=== PATIENT | female | born 1970 | race Caucasian/White ===

== ENCOUNTER 2020-08-13 21:16 | Emergency (ER) | payer BC, SELFPAY ==
--- NOTE | 2020-08-13 | XR_ITS ---
EXAMINATION: CHEST 1 VIEW CLINICAL INFORMATION: Shortness of breath. COMPARISON: None. TECHNIQUE: An AP view of the chest is provided. FINDINGS: The cardiac silhouette is not enlarged. The mediastinal and hilar contours are unremarkable. There are neither pleural effusions nor pneumothoraces. There are no consolidations. The osseous structures are unremarkable. XR/XR chest 1V IMPRESSION: No evidence for acute disease.
[2020-08-13 21:20] VITALS: BP 138/86; PULSE 110; RESP 18; TEMP 37.2; O2SAT 97
--- NOTE | 2020-08-13 22:04 | ED_ITS ---
HPI - General Adult General Chief complaint: General Medical Stated complaint: covid symptoms Time Seen by Provider: 08/13/20 22:04 Source: patient Mode of arrival: ambulatory Limitations: no limitations History of Present Illness HPI narrative: Just back from [place] now with aches and pains, coughing Onset (ago): day(s) Severity: mild Related Data Allergies Allergy/AdvReac Type Severity Reaction Status Date / Time No Known Allergies Allergy Mild N/A Unverified 06/22/20 17:00 Review of Systems Constitutional: Constitutional: Reports no additional constitutional complaints Eyes: Eyes: Reports no additional eye complaints ENT: Denies dizziness Cardiovascular: Cardiovascular: Reports no additional cardiovascular complaints Respiratory: Respiratory: Reports as per HPI Gastrointestinal: Gastrointestinal: Reports no additional gastrointestinal complaints Genitourinary: Genitourinary: Reports no additional female genitourinary com plaints Musculoskeletal: Musculoskeletal: Reports no additional musculoskeletal complaints Integumentary/Breasts: Skin/Breast: Denies rash Neurologic: Reports system reviewed and no additional complaints, except as documented, Denies dizziness and Denies Sensory deficit (Neuro) Psychiatric: Psychiatric: Denies anxiety [facility] Social History Social History Alcohol intake: never Smoked in Last 30 Days: No Use of substances other than those prescribed or required for medical reasons: No Advance Directives: No Advance Directives Information Provided: No Physical Exam Vital Signs: Vital Signs: Last Vital Signs Temp 98.9 F 08/13/20 21:20 Pulse 110 H 08/13/20 21:20 Resp 18 08/13/20 21:20 BP 138/86 08/13/20 21:20 Pulse Ox 97 08/13/20 21:20 Body Mass Index 30.0 Const: General: healthy appearing Nutritional Appearance: average body habitus Orientation/consciousness: oriented to person and patient oriented x3 Limitations: no limitations HENMT: Head: Yes normal to inspection Ears: external ears normal General nose exam: Normal external nose present Mouth: Normal oral and palatal mucosa present and oropharynx normal Throat: Yes posterior oropharynx normal Eyes: General: appearance normal, both eyes and all related structures Neck: Other: supple Neck: Yes normal visual inspection Chest: Chest palpation & inspection: normal inspection of the chest Resp: Auscultation: clear to auscultation bilaterally Cardio: Jugular venous distension: no JVD Rate: regular rate Rhythm: regular rhythm Heart sounds: S1 normal heart sound present and S2 normal heart sound present GI: Inspection: Yes normal to inspection Palpation (GI): Soft to palpation, nontender and No hepatosplenomegaly present Auscultation: normal bowel sounds : General: Yes no CVA tenderness Back/Spine/Pelvis: Back: no CVA tenderness Skin: General skin exam: no rashes or lesions noted Neuro: General: oriented to person and patient oriented x3 Cranial nerves: Yes CN's II-XII intact bilaterally Motor exam (neuro): 5/5 motor strength present throughout Sensory Exam: No Sensory deficit (Neuro) Extrem: General: Yes normal to inspection Psych: Appearance: grossly normal Course Course Course Narrative: looking well will dc home Medical Decision Making Imaging Data Chest x-ray: Radiologist's impression: no infiltrate Discharge Plan Discharge Clinical Impression: COVID-19 Patient Disposition: Home, Self-Care Instructions: COVID-19 (Coronavirus Disease 2019) (ED) Referrals: Stef Schroeder MD [Primary Care Provider] - 2 days
== END 2020-08-13 23:38 | disposition home or self-care (01) ==
PROVIDERS: Emergency Provider Emergency Medicine; PCP Internal Medicine
DX: U07.1 COVID-19 (principal); R05 Cough
CPT/HCPCS: 71045; 99283; 99284; U0003

== ENCOUNTER 2020-09-27 09:34 | Outpatient (REF) | payer BC, SELFPAY ==
--- NOTE | 2020-09-27 09:39 | XR_ITS ---
EXAMINATION: XR CHEST CLINICAL INFORMATION: Cough COMPARISON: Chest radiograph 08/13/2020 TECHNIQUE: 2 views of the chest were obtained. FINDINGS: The lungs are clear. There is no airspace consolidation or groundglass opacity. The costophrenic sulci are well-defined. The heart is normal in size. The hilar and mediastinal contours are normal. No visible acute bony abnormality. XR/XR chest 2V IMPRESSION: Unremarkable examination.
== END 2020-09-27 09:35 | disposition home or self-care (01) ==
LOC: HO.HMGCX 09:34
PROVIDERS: PCP Internal Medicine; Visit Provider Internal Medicine
DX: R05 Cough (principal); R94.5 Abnormal results of liver function studies
CPT/HCPCS: 71046

== ENCOUNTER 2021-07-05 17:46 | Emergency (ER) | payer BC, SELFPAY ==
--- NOTE | ~2021-07-05 | XR_ITS ---
Indication: Fall, injury EXAMINATION: Left shoulder, left elbow. 4 views of the left shoulder do not demonstrate fracture or dislocation. 3 views of left elbow do not demonstrate fracture or dislocation. XR/XR shoulder LT min 2V IMPRESSION: No fracture or dislocation left elbow, left shoulder.
--- NOTE | ~2021-07-05 | XR_ITS ---
Indication: Fall, injury EXAMINATION: Left shoulder, left elbow. 4 views of the left shoulder do not demonstrate fracture or dislocation. 3 views of left elbow do not demonstrate fracture or dislocation. XR/XR elbow LT 2V IMPRESSION: No fracture or dislocation left elbow, left shoulder.
[2021-07-05 18:29] VITALS: BP 152/91; PULSE 73; RESP 18; TEMP 36.8; O2SAT 100
[2021-07-05] MEDS: Acetaminophen 325 MG TABLET 650 MG PO (18:35)
--- NOTE | 2021-07-05 19:21 | ED.FALL ---
HPI - Fall General Chief Complaint: Fall Stated Complaint: fall l arm head inj Time Seen by Provider: 07/05/21 19:21 Source: patient Mode of arrival: ambulatory Limitations: no limitations History of Present Illness HPI Narrative: 50-year-old female is here today for complaints of left head, shoulder, elbow pain. Patient reports that she was walking into the house and had bags in her hands and tripped and fell onto the left side. Patient reports hitting left side of her forehead, her left shoulder and her left elbow. Patient denies LOC. Denies any lacerations. Patient denies any other symptoms. Patient denies any other concerning symptoms. MD complaint: fall Onset (ago): hour(s) Fall from: standing Place fall occurred: home Loss of consciousness: none Context: tripped/slipped Location of injury: head and other (Left shoulder and left elbow) Related Data Previous Rx's Medication Instructions Recorded albuterol sulfate 90 mcg/actuation 2 puff INHALATION Q6H PRN #8.5 g 09/27/20 aerosol inhaler (ProAir HFA) cyclobenzaprine 10 mg tablet 10 mg PO BEDTIME PRN #10 tab 07/05/21 oxycodone 5 mg tablet 5 mg PO Q4-6H PRN #5 tab 07/05/21 Allergies Allergy/AdvReac Type Severity Reaction Status Date / Time No Known Allergies Allergy Mild N/A Verified 07/05/21 18:29 Review of Systems Review of Systems: Constitutional : No Weight loss, No Fever, No Chills, No Night Sweats, No Fatigue, No Malaise ENT/Mouth : No Hearing loss, No Ear Pain, No Nasal Congestion, No Sinus Pain, No Hoarseness, No sore throat, No Rhinorrhea, No Swallowing Difficulty Eyes: No Eye Pain, No Swelling, No Redness, No Foreign Body, No Discharge, No Vision Changes Cardiovascular : No Chest Pain, No SOB, No Dyspnea on Exertion, No Orthopnea, No Edema, No Palpitations Respiratory : No Cough, No Sputum, No Wheezing, No Smoke Exposure, No Dyspnea Gastrointestinal : No Nausea, No Vomiting, No Diarrhea, No Constipation, No abdominal Pain, No Hematochezia, No Melena Genitourinary : no irregular bleeding, No Dysuria, No Urinary Frequency, No Hematuria, No Urinary Incontinence, No Urgency, No Flank Pain, No Urinary Flow Changes, No Hesitancy Musculoskeletal : No joint pain, No Myalgias, No Joint Swelling Skin : No Skin Lesions, No rash Neuro : No Weakness, No Numbness, No Paresthesias, No Loss of Consciousness, No Dizziness, No Headache Yes all other systems are reviewed and are negative Constitutional: Constitutional: Denies weight gain and Denies weight loss Cardiovascular: Cardiovascular: Reports no additional cardiovascular complaints Respiratory: Respiratory: Reports no additional respiratory complaints Gastrointestinal: Gastrointestinal: Denies abdominal pain, Denies belching, Denies melena, Denies bloating, Denies change in bowel habits, Denies dyspepsia, Denies heartburn, Denies nausea and Denies vomiting Neurologic: Reports system reviewed and no additional complaints, except as documented Psychiatric: Psychiatric: Reports no additional psychiatric complaints PMFSH Past Medical History Medical History (Updated 07/05/21 @ 20:42 by Janeen Smith DRAWING MACHINE OPERATOR-) Cough COVID-19 Surgical History History of section Hx of cholecystectomy Social History Social History (Updated 09/27/20 @ 09:01 by BETH Clinton) Alcohol intake: never Advance Directives: No Advance Directives Information Provided: No Patient : No Physical Exam Vital Signs: Vital Signs: Last Vital Signs Temp 98.2 F 07/05/21 18:29 Pulse 78 07/05/21 20:31 Resp 16 07/05/21 20:31 BP 115/76 07/05/21 20:31 Pulse Ox 99 07/05/21 20:31 Body Mass Index 30.0 Const: General: healthy appearing, no acute distress and well developed Nutritional Appearance: well nourished Orientation/consciousness: patient oriented x3 HENMT: Head: Yes No palpable skull fracture present, Yes contusion (Left periorbital frontal area) and Yes hematoma Ears: hearing grossly normal bilaterally, external ears normal and TM's normal bilaterally Eyes: General: appearance normal, both eyes and all related structures Neck: Neck: Yes normal visual inspection, Yes full ROM and Yes trachea midline Thyroid: Thyroid normal Resp: Effort & Inspection: normal respiratory effort and able to speak in complete sentences Auscultation: clear to auscultation bilaterally Cardio: Rate: regular rate Rhythm: regular rhythm GI: Inspection: Yes normal to inspection and No distended Palpation (GI): No hepatosplenomegaly present Auscultation: normal bowel sounds Skin: General skin exam: elasticity normal, turgor normal and dry skin Neuro: General: patient oriented x3, gait normal and moves all extremities Extrem: Right upper extremity: normal to inspection, full ROM and normal capillary refill Left upper extremity: normal to inspection and full ROM (Limited ROM, pain left shoulder, elbow) Course Course Course Narrative: Patient tripped and fell into the staircase concrete, patient was caring bags in her hands and was unable to stop the fall. Denies LOC, mild hematoma to left forehead. Pain to her left shoulder and left elbow. Decreased ROM a to elbow and shoulder will do x-ray. Patient will be medicated with oxycodone. Reevaluation(s) Reevaluation #1: X-ray negative for any acute findings. We will send patient home on cyclobenzaprine and oxycodone. Patient was instructed to apply ice for the 1st 3 days. She may return to emergency department if her symptoms will get worse. She is agreeable to this plan. MDM - Fall Imaging Data Left shoulder, left elbow x-ray: Attestation: I personally reviewed and interpreted this imaging study as follows: Radiologist's impression: EXAMINATION: Left shoulder, left elbow. 4 views of the left shoulder do not demonstrate fracture or dislocation. 3 views of left elbow do not demonstrate fracture or dislocation. Discharge Plan Discharge Clinical Impression: Contusion Qualifiers: Encounter type: initial encounter Contusion area: shoulder Laterality: left Qualified Code(s): S40.012A - Contusion of left shoulder, initial encounter Patient Disposition: Home, Self-Care Instructions: Contusion in Adults (ED) Additional Instructions: You were seen here today after fall. Your x-rays negative for any acute findings. You sustained some bruising to your shoulder and your elbow as well as your forehead. Please make sure apply ice for the next 3 days. You can take ibuprofen to decrease the swelling 3 diet is after the fall. You are being sent home with muscle relaxer and oxycodone to help you with the pain. Prescriptions: New cyclobenzaprine 10 mg tablet 10 mg PO BEDTIME PRN (Reason: muscle spasm) Qty: 10 RF: 0 oxycodone 5 mg tablet 5 mg PO Q4-6H PRN (Reason: pain) Qty: 5 RF: 0 No Action albuterol sulfate [ProAir HFA] 90 mcg/actuation HFA aerosol inhaler 2 puff inhalation Q6H PRN (Reason: shortness of breath or wheezing) Qty: 8.5 RF: 1 Referrals: Stef Schroeder MD [Primary Care Provider] - 2 days
[2021-07-05] MEDS: oxyCODONE HCl Immed Release 5 MG TABLET PO (19:49)
[2021-07-05 20:31] VITALS: BP 115/76; PULSE 78; RESP 16; O2SAT 99
== END 2021-07-05 21:00 | disposition home or self-care (01) ==
PROVIDERS: Emergency Provider Internal Medicine; PCP Internal Medicine
DX: S40.012A Contusion of left shoulder, initial encounter (principal); M25.512 Pain in left shoulder; W01.0XXA Fall on same level from slipping, tripping and stumbling without subsequent striking against object, initial encounter; Y93.9 Activity, unspecified; Y92.9 Unspecified place or not applicable; Y99.9 Unspecified external cause status
CPT/HCPCS: 73030; 73070; 99283; 99284

== ENCOUNTER 2021-08-21 11:39 | Outpatient (REF) | payer BC, SELFPAY ==
--- NOTE | ~2021-08-21 | MM_ITS ---
EXAMINATION: MM SCREENING DIGITAL BREAST TOMOSYNTHESIS, BILATERAL CLINICAL INFORMATION: Screening. Asymptomatic. The lifetime risk of breast cancer based on the Tyrer-Cuzick Model is 14%. COMPARISON: Mammography: 10/26/2019, 04/23/2019, 10/19/2018, 10/04/2015; targeted left breast ultrasound 04/23/2019 TECHNIQUE: Digital breast tomosynthesis is performed in both the craniocaudal and mediolateral oblique views along with computer-aided detection (CAD). Synthesized 2D images are generated from the tomosynthesis. FINDINGS: The breasts are heterogeneously dense, which may obscure small masses (ACR BI-RADS breast composition Category c). Fibronodular parenchymal pattern with scattered bilateral asymmetries similar to prior study. There is no significant mass or interval architectural abnormality or abnormal calcifications. There is known cyst central inner left breast. The axilla and skin contours are unremarkable. No significant changes. MM/MM tomosynthesis screening BI IMPRESSION: No significant changes from prior exams. ASSESSMENT: BI-RADS 2: Benign RECOMMENDATION: Routine annual mammography screening. This patient's information was entered into a reminder system with a target due date for their next mammogram.
== END 2021-08-21 11:40 | disposition home or self-care (01) ==
LOC: HO.MAMMO 11:39
PROVIDERS: Visit Provider Internal Medicine
DX: Z12.31 Encounter for screening mammogram for malignant neoplasm of breast (principal)
CPT/HCPCS: 77063; 77067

== ENCOUNTER 2022-06-26 13:05 | Outpatient (REF) | payer BC, SELFPAY ==
--- NOTE | ~2022-06-26 | XR_ITS ---
EXAMINATION: XR SHOULDER, RIGHT CLINICAL INFORMATION: Pain in the right shoulder. COMPARISON: No similar priors. TECHNIQUE: Three views of the right shoulder. FINDINGS: The bones and soft tissues are normal. No fracture. Glenohumeral and acromioclavicular alignment is anatomic with normal joint space. No abnormal soft tissue calcifications. XR/XR shoulder RT min 2V IMPRESSION: Normal right shoulder.
== END 2022-06-26 13:06 | disposition home or self-care (01) ==
LOC: HO.HMGCX 13:05
PROVIDERS: PCP Internal Medicine; Visit Provider Physician Assistant
DX: M25.511 Pain in right shoulder (principal)
CPT/HCPCS: 73030

== ENCOUNTER 2022-08-23 08:34 | Outpatient (REF) | payer BC, SELFPAY ==
[2022-08-23 11:36] LABS: MANUAL DIFF FLAG NO
[2022-08-23 11:50] LABS: Basophils Percent Auto 0.6 % (0-2); Eosinophils Absolute Auto 0.1 X10*3/uL (0.0-0.4); Eosinophils Percent Auto 2.1 % (0-4); Hematocrit 42.2 % (37.0-47.0); Hemoglobin 13.7 g/dl (12.0-16.0); Imm Gran Abs Auto 0.02 X10*3/uL (0.00-0.03); Imm Gran Pct Auto 0.3 % (0.0-0.4); Lymphocytes Absolute Auto 1.4 X10*3/uL (1.2-4.9); Lymphocytes Percent Auto 22.2 % (20-40); Mean Corpuscular HGB Conc 32.5 g/dl (31.0-35.0); Mean Corpuscular Hemoglobin 31.2 pg (27.0-33.0); Mean Corpuscular Volume 96.1 fL (80.0-98.0); Mean Platelet Volume 10.4 fL (9.4-12.3); Monocytes Absolute Auto 0.5 X10*3/uL (0.1-1.2); Monocytes Percent Auto 7.7 % (2-11); Neutrophils Absolute Auto 4.2 x10*3/uL (2.0-8.3); Neutrophils Percent Auto 67.1 % (45-73); Platelet Count 306 X10*3/uL (160-400); Red Blood Count 4.39 X10*6/uL (4.20-5.50); Red Cell Distribution Width 12.5 % (11.0-16.0); White Blood Count 6.3 X10*3/uL (4.8-10.8)
[2022-08-23 12:28] LABS: Alanine Aminotransferase 39 U/L (0-31); Alkaline Phosphatase 82 U/L (39-117); Anion Gap 15 (12-20); Aspartate Amino Transferase 28 U/L (5-31); Bilirubin Total 0.3 mg/dL (0.0-1.0); Blood Urea Nitrogen 18 mg/dL (9-16); Calcium 9.2 mg/dL (8.4-10.2); Carbon Dioxide 26 mmol/L (22-29); Chloride 104 mmol/L (96-108); Cholesterol 195 mg/dL; Estimated Glomerular Filt Rate > 60; Glucose Fasting 88 mg/dL (60-99); HDL Cholesterol 83 mg/dL; LDL Cholesterol Calculated 106 mg/dl; Potassium 4.8 mmol/L (3.3-5.1); Sodium 140 mmol/L (135-145); Total Protein 7.3 g/dL (6.5-8.0); Triglycerides 32 mg/dL
[2022-08-23 12:56] LABS: TSH reflex Free T4 2.12 uIU/mL (0.32-4.0)
[2022-08-23 12:59] LABS: Albumin Level 4.4 g/dL (3.5-5.0)
[2022-08-28 15:11] LABS: Vitamin D 25-OH, D2 <4 ng/mL; Vitamin D 25-OH, D3 38 ng/mL; Vitamin D 25-OH, Total 38 ng/mL (30-100)
== END 2022-08-23 08:35 | disposition home or self-care (01) ==
LOC: HO.HMGCLDS 08:34
PROVIDERS: PCP Internal Medicine; Visit Provider Internal Medicine
DX: Z00.01 Encounter for general adult medical examination with abnormal findings (principal); E66.09 Other obesity due to excess calories; K59.00 Constipation, unspecified; M25.511 Pain in right shoulder
CPT/HCPCS: 36415; 80053; 80061; 82306; 84443; 85025

== ENCOUNTER 2022-08-27 08:00 | Outpatient (RCR) | payer BC, SELFPAY ==
--- NOTE | 2022-08-06 15:53 | MHC.PT.EP ---
[facility] [place] Office [place] Office [place] Office [address] Red[address] [phone] F: [phone] F: [phone] F: [phone] F: [phone] Physical Therapy Plan of Care Date of Evaluation: Date of Surgery: n/a Diagnosis: R rotator cuff tendonitis Assessment: Patient is a 51 year old female presenting to PT with complaints of pain in her R shoulder. Pt reports onset of pain began about 6 months ago shortly after returning to the gym. She presents today with impairments in pain, ROM, numbness tingling, shoulder strength, posture. 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 Pt expresses long-term goal of returning to PLOF, and is motivated to work towards this in PT. Clinical presentation today is most consistent with signs and sx associated with R shoulder pain with possible contribution from her neck and pt will benefit from skilled PT to address the following problems and impairments noted upon evaluation: pain, ROM, numbness tingling, shoulder strength, posture. These problems limit the patient with the following functional activities: reaching, lifting, ADLs, exercise. The prescribed treatment plan of care is medically necessary. Co-morbidities of none were identified and taken into considerations of plan of care. Pt was educated on HEP, role of PT, prognosis, POC. Frequency and Duration: The patient will be seen 2 x week x 4 weeks Short Term Goals: Pt will demonstrate less incidence of numbness and tingling down her arm in 2 weeks. Pt will demonstrate improved postural awareness by sitting with biomechanically correct posture without cues throughout session to improve overall postural function 2 weeks. Pt will demonstrate full pain free AROM on R in 2 weeks. Pt will demonstrate 5/5 MMT strength on R in 2 weeks. Commodity Management Specialist Goals: Pt will demonstrate improved SPADI score by 13 points in 4 weeks for improved functional mobility. Pt will demonstrate ability to complete ADLs with min to no pain in 4 weeks for return to PLOF. Pt will demonstrate ability to exercise at her PLOF with min to no pain in 4 weeks for return to PLOF. Treatment Plan: Modalities to reduce pain, spasms and effusion. Manual therapy to restore motion and function. Therapeutic exercise to improve strength and flexibility. Neuromuscular re-education for posture and balance. Therapeutic activities to return to functional activities of daily living. Electronically signed by: Zuleika Martinez, PT, DPT, ATC Please sign and return to therapist. Thank you for your referral.
--- NOTE | 2022-10-01 13:39 | MHC.PT.DC ---
[facility] [place] Office [place] Office [place] Office [address] [phone] F: [phone] F: [phone] F: [phone] F: [phone] Physical Therapy Discharge Report Diagnosis: R rotator cuff tendonitis Date of Surgery: n/a Date of Evaluation: 08/06/22 Date of Discharge: 10/01/22 Treatments to Date: 6 Cancellations to Date: 0 No Shows to Date: 0 Discharge Status: Improved Function Independent with HEP Discharge Summary: Pt feeling better at last scheduled visit. Pt had been placed on 30 day hold to be sure sx do not return. Pt has not reached out in >30 days and therefore to be d/c at this time. Electronically signed by: Zuleika Martinez, PT, DPT, ATC Please sign and return to therapist. Thank you for your referral.
== END 2022-10-01 13:40 | disposition home or self-care (01) ==
LOC: HO.PTCHIC 08:00
PROVIDERS: PCP Internal Medicine; Visit Provider Physician Assistant
DX: M75.80 Other shoulder lesions, unspecified shoulder (principal)
CPT/HCPCS: 97110; 97161

== ENCOUNTER 2022-09-02 10:13 | Outpatient (REF) | payer BC, SELFPAY ==
--- NOTE | ~2022-09-02 | MM_ITS ---
EXAMINATION: MM SCREENING DIGITAL BREAST TOMOSYNTHESIS, BILATERAL CLINICAL INFORMATION: Screening. Asymptomatic. The lifetime risk of breast cancer based on the Tyrer-Cuzick Model is 10%. COMPARISON: Mammography: 08/21/2021, 10/26/2019, 04/23/2019 18, 10/19/2018 TECHNIQUE: Digital breast tomosynthesis is performed in both the craniocaudal and mediolateral oblique views along with computer-aided detection (CAD). Synthesized 2D images are generated from the tomosynthesis. FINDINGS: The breasts are heterogeneously dense, which may obscure small masses (ACR BI-RADS breast composition Category c). There are no significant masses, abnormal calcifications, or other abnormalities. Parenchymal pattern is similar to prior studies. There is no developing density or architectural abnormality. The axilla and skin contours are unremarkable. No significant changes. MM/MM tomosynthesis screening BI IMPRESSION: No mammographic evidence of malignancy. ASSESSMENT: BI-RADS 1: Negative RECOMMENDATION: Routine annual mammography screening. This patient's information was entered into a reminder system with a target due date for their next mammogram.
== END 2022-09-02 10:14 | disposition home or self-care (01) ==
LOC: HO.MAMMO 10:13
PROVIDERS: PCP Internal Medicine; Visit Provider Internal Medicine
DX: Z12.31 Encounter for screening mammogram for malignant neoplasm of breast (principal)
CPT/HCPCS: 77063; 77067

== ENCOUNTER → 2022-11-15 07:49 | Outpatient (BNVA) | payer BC, SELFPAY | PROVIDERS: PCP Internal Medicine; Referring Provider Internal Medicine; Visit Provider Nurse Practitioner Family | DX: Z13.89 Encounter for screening for other disorder (principal) ==

== ENCOUNTER 2023-02-20 14:14 | Outpatient (REF) | payer BC, SELFPAY ==
--- NOTE | ~2023-02-20 | MM_ITS ---
EXAMINATION: BONE DENSITOMETRY CLINICAL INDICATION: Fracture of unspecified carpal bone, left wrist, initial encounter. COMPARISON: This is the patient's baseline examination. TECHNIQUE: Using a [employer] DXA System (software version: 13.1) manufactured by [employer], dual-energy x-ray absorptiometry was performed of the lumbar spine and left hip. The images are of good technical quality. Summary results are attached. FINDINGS: AP SPINE L1-L4: BMD 1.284 g/cm2, Z-score 0.7, T-score 0.9, normal. LEFT FEMUR, NECK: BMD 0.949 g/cm2, Z-score -0.2, T-score -0.6, normal. LEFT FEMUR, TOTAL: BMD 1.064 g/cm2, Z-score 0.5, T-score 0.4, normal. IDENTIFIED RISK FACTORS: History of fracture (adult). HISTORY OF FRACTURE: Wrist. MEDICATIONS: Vitamin D. MM/XR DEXA axial skeleton IMPRESSION: 1. DIAGNOSIS: Normal bone density based on the lowest T-score value of -0.6 in the femoral neck applying World Health Organization criteria. 2. 10-YEAR FRACTURE RISK PREDICTION, FRAX: According to the guidelines, FRAX calculation should only be performed on patients in the osteopenia bone density category. Therefore, FRAX was not performed on this patient. 3. Treatment Recommendations: NOF guidelines recommend consideration for treatment in postmenopausal women and men age 50 and older presenting with the following: -A hip or vertebral (clinical or morphometric) fracture. -T-score less than or equal to -2.5 at the femoral neck or spine after appropriate evaluation to exclude secondary causes. -Low bone mass at the hip or spine and a 10-year fracture probability by FRAX of greater than or equal to 3% for hip fracture or greater than or equal to 20% for major osteoporotic fracture based on the [place] adapted WHO algorithm. 4. Other Recommendations: All treatment decisions require clinical judgment and consideration of individual patient factors, including patient preferences, comorbidities, previous drug use, risk factors not captured in the FRAX model (e.g. frailty, falls, vitamin D deficiency, increased bone turnover, interval significant decline in bone density) and possible under or overestimation of fracture risk by FRAX. FUTURE SCAN RECOMMENDATION: People with diagnosed cases of osteoporosis or at high risk for fracture should have regular bone mineral density tests. For patients eligible for Medicare, routine testing is allowed once every 2 years. The testing frequency can be increased to one year for patients who have rapidly progressing disease, those who are receiving or discontinuing medical therapy to restore bone mass, or have additional risk factors.
== END 2023-02-20 14:15 | disposition home or self-care (01) ==
LOC: HO.MAMMO 14:14
PROVIDERS: Visit Provider Internal Medicine
DX: Z13.820 Encounter for screening for osteoporosis (principal); S62.102A Fracture of unspecified carpal bone, left wrist, initial encounter for closed fracture; N95.9 Unspecified menopausal and perimenopausal disorder; Z82.62 Family history of osteoporosis; X58.XXXA Exposure to other specified factors, initial encounter; Y93.9 Activity, unspecified; Y92.9 Unspecified place or not applicable; Y99.9 Unspecified external cause status
CPT/HCPCS: 77080

== ENCOUNTER 2023-03-07 13:30 | Outpatient (RCR) | payer BC, SELFPAY | END 2023-03-24 11:44 | disposition home or self-care (01) | LOC: HO.OT 13:30 | PROVIDERS: PCP Internal Medicine; Visit Provider Student in an Organized Health Care Education/Training Program | DX: Z98.890 Other specified postprocedural states (principal) | CPT/HCPCS: 29130; 97110; 97140; 97165; 97530; 97760 ==

== ENCOUNTER 2023-05-16 08:48 | Day surgery (SDC) | payer BC, SELFPAY ==
[2023-05-14 09:43] VITALS: BMI 31.8
--- NOTE | 2023-05-15 10:16 | HO.ANESPROP2 ---
Documented by User: Mony Alvarez NP 05/15/23 10:16 HPI - Anesthesia Eval Consult details Narrative: 52yo F for Colonoscopy PMFSH Active Problems Active Problems: All Active Problems (Updated 02/04/23 @ 13:36 by Stef Schroeder MD) Family history of osteoporosis (Acute) Premenopausal patient (Acute) Wrist fracture, left (Acute) Colon cancer screening (Acute) Encounter for preventive care (Acute) Skin cancer screening (Acute) Obesity due to excess calories (Acute) Constipation (Acute) Right shoulder pain (Acute) Encounter for general adult medical examination with abnormal findings (Acute) Rotator cuff tendonitis (Acute) COVID-19 (Acute) Cough (Acute) Past Medical History Medical History Cough COVID-19 Surgical History Surgical History History of section Hx of cholecystectomy Social History Social History Housing: House Alcohol intake: never Patient Tobacco Use Status: Never used Tobacco e-Cigarette/Vaping Use: Never Used Advance Directives: No Advance Directives Information Provided: Yes Current occupational status: employed 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, 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 Cognitive needs: No Hearing needs: No Vision needs: Yes Meds Allergies Allergy/AdvReac Type Severity Reaction Status Date / Time No Known Allergies Allergy Mild N/A Verified 02/04/23 13:23 Exam Exam Date and Time: May 15, 2023 1016 Height,Weight and Vital Signs: Height 5 ft 4 in Weight 83.915 kg Assessment and Plan Assessment Anesthesia Assessment: Chart Reviewed Documented by User: Mine Michael MD 05/16/23 10:14 PMFSH Past Medical History Medical History Cough COVID-19 Family History Family history of problems with anesthesia: No Surgical History Surgical History History of section Hx of cholecystectomy History of Problems with Anesthesia: No Social History Social History Housing: House Alcohol intake: never Patient Tobacco Use Status: Never used Tobacco e-Cigarette/Vaping Use: Never Used Advance Directives: No Advance Directives Information Provided: Yes Current occupational status: employed 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, 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 Cognitive needs: No Hearing needs: No Vision needs: Yes Meds Allergies Allergy/AdvReac Type Severity Reaction Status Date / Time No Known Allergies Allergy Mild N/A Verified 02/04/23 13:23 Exam Airway Mallampati Class: II TM Dist: >3cm Neck ROM: Full Heart: rrr Lungs: cta Assessment and Plan Assessment Anesthesia Assessment: Anesthesia Plan Discussed Final Anesthetic Review Family History of Problems with Anesthesia: No History of Problems with Anesthesia: No NPO: Yes ASA Class: II Final Preanesthetic Review: No Changes in Pt Med Stat, Meds/Allgs Chart Reviewed, Consent Obtained/Reviewed and Anes Risks/Benef Reviewed Patient Risk: Low Procedure Risk: Low Anesthetic Plan Anesthetic Plan: MAC: Disposition: Standard PACU
[2023-05-16 09:15] VITALS: BP 105/68; PULSE 83; RESP 18; TEMP 36.8; O2SAT 98
--- NOTE | 2023-05-16 09:31 | MHC.SHP ---
Pre-Procedural Eval Section A Date of Service: 05/16/23 The patient is an INPATIENT: No The History & Physical has been completed within 30 days and I have reviewed it.: No Section B Chief Complaint: screening, constipation Relevant Social History: None Present Medications: see Short Stay Collaborative assessment Medical History: Significant History (Cough COVID-19) History of Previous Operations: Relevant previous surgery/procedure and date(s) (History of section Hx of cholecystectomy) Allergies: Allergies Allergy/AdvReac Type Severity Reaction Status Date / Time No Known Allergies Allergy Mild N/A Verified 02/04/23 13:23 Review of Systems Sugical H&P ROS: Negative: Constitution, Cardiovascular, Respiratory and Gastrointestinal Exam Surgical H&P Exam: Normal: Heart, Normal: Lungs, Normal: Extremities and Normal: Abdomen Plan Diagnosis/Plan: Unchanged I have reviewed the history and physical and performed a pertinent physical examination on my patient. No changes have occurred unless specified. Time Spent With Patient Time: Total time managing care of this patient today ____ minutes.
[2023-05-16 09:50] LABS: UPreg QC Valid YES; Urine Pregnancy NEGATIVE (NEGATIVE)
[2023-05-16] MEDS: Lactated Ringers 1,000 ML 100 ML IVCONT (10:45)
--- NOTE | 2023-05-16 11:34 | P.OP_ITS ---
Operative Note Operative Note Date of Service: 05/16/23 Narrative: COLONOSCOPY TILL CECUM WITH BIOPSIES Pre-op diagnosis: Colon cancer screening, chronic constipation Post-op diagnosis:? Colon polyp, diverticulosis Endoscopist:? Nanette Forman MD Anesthesia:?MAC Consent: Indications for the procedure and potential complications of bleeding, perforation, reaction to medications and missed diagnosis were discussed with the patient and informed consent was obtained. Instrument: Olympus PCF H 190 L variable stiffness pediatric colonoscope Monitoring: Vital signs and clinical assessment, intermittent blood pressure monitoring, continuous EKG monitoring, Pulse oximetry and Carbon Dioxide monitoring were done throughout the procedure. Please see anesthesia flowsheet. Colon withdrawl time was 23 minutes. Procedure: The patient was placed in the left lateral decubitis position and pre-procedure medications were administered. After a digital rectal examination of the ano-rectum, the video colonoscope was inserted into the rectum and advanced through the colon to the cecum. The colonoscope was slowly withdrawn in a retrograde panoramic fashion and the colon mucosa was carefully examined including a retroflexed view of the rectum. Findings and interventions are described below. Procedure Difficulty: Colon was long and tortuous and there was recurrent loop formation. LLQ pressure was applied to intubate the ascending colon/cecum Findings: Terminal Ileum: Not evaluated Cecum: Normal Ascending Colon: A 5-6 mm diminutive appearing polyp in the distal AC/hepatic flexure -removed with a cold biopsy Transverse Colon: Normal Descending Colon: Normal Sigmoid Colon: Moderate diverticulosis Rectum: Mild patchy erythema in the distal 2-3 cms of the rectum - random biopsies were obtained to rule out proctitis Ano-rectum: Normal Colon preparation: Good after copious irrigation and fair to poor in the re ctosigmoid colon (0-40 cms) due to scattered solid stool balls which could not be suctioned. Impression and Post Procedure Diagnosis: Colonoscopy Findings: One small diminutive appearing polyp removed Moderate diverticulosis seen in the sigmoid colon Mild patchy erythema in the distal 2-3 cms of the rectum - random biopsies were obtained to rule out proctitis Plan: Await pathology results Patient has an appointment on 05/26/23 in the GI Clinic with Janeen Smith FNP-BC . Repeat Colonoscopy interval based on path results - in 3 years if polyps are adenomatous and due to fair to poor prep in the left colon (pt needs extra laxatives prior to the procedure and adult colonoscope for future colonoscopies. Above findings were reviewed with the patient and colon polyps and diverticulo sis handouts were given in the discharge area
[2023-05-16 11:42] VITALS: BP 110/65; PULSE 82; RESP 18; TEMP 36.3; O2SAT 100
[2023-05-16 11:55] VITALS: BP 109/72; PULSE 65; RESP 16; TEMP 36.4; O2SAT 100
== END 2023-05-16 12:40 | disposition home or self-care (01) ==
PROVIDERS: PCP Internal Medicine; Visit Provider Internal Medicine Gastroenterology
PROC: 0DJD8ZZ Inspection of Lower Intestinal Tract, Via Natural or Artificial Opening Endoscopic (ICD-10-PCS; CPT 45378; principal; 2023-05-16 10:20)
DX: Z12.11 Encounter for screening for malignant neoplasm of colon (principal); K59.01 Slow transit constipation; K63.5 Polyp of colon; K57.30 Diverticulosis of large intestine without perforation or abscess without bleeding; K62.89 Other specified diseases of anus and rectum; R05.9 Cough, unspecified; Z86.16 Personal history of COVID-19
CPT/HCPCS: 45380; 81025; 88305

== ENCOUNTER → 2023-05-16 08:48 | Outpatient (BNV) | payer BC, SELFPAY | PROVIDERS: PCP Internal Medicine; Visit Provider Internal Medicine Gastroenterology | DX: Z12.11 Encounter for screening for malignant neoplasm of colon (principal); K63.5 Polyp of colon; K57.30 Diverticulosis of large intestine without perforation or abscess without bleeding | CPT/HCPCS: 45380 ==

== ENCOUNTER 2023-05-26 08:07 | Outpatient (AMB) | payer BC, SELFPAY ==
--- NOTE | 2023-05-26 08:13 | MHC.OFFVIS ---
Intake Vital Signs 05/26/23 08:14 Height 5 ft 4 in Weight 160 lb 14.999 oz BMI 27.6 BP 107/63 Blood Pressure Location Lt brachial Position Sitting Pulse 69 Intake Visit Reasons: S/p colo-Dickson Intake Note: Shira presents in office as a est.patient for a post-op for colo pt got it done 05.16.23 PT CC: pt reports having concerns pt denies any other GI issues Director Post Required: No Accompanied by: Self / Same As Patient Allergies No Known Allergies Allergy (Mild, Verified 05/26/23 08:13) N/A HPI S/p colo-Dickson HPI Details LAST VISIT Colon cancer screening Patient denies any GI, cardiac or respiratory symptoms.? Denies any issues with anesthesia in the past.? Denies any history of sleep apnea.? No history infectious diseases in the past or present.? Not on any anticoagulation therapy.? No family or personal history of colon cancer or polyps.? Patient denies melena, hematochezia, unintentional weight loss or ribbon like stools.? Discussed at length the pre-procedure,? prep, diet & medications as well as what to expect prior, during and after the procedure.?? Stressed the importance of good bowel prep. ?Recommended the use of Vaseline or Calmoseptine OTC & baby wipes with bowel movements to promote comfort.? ?Patient verbalizes understanding and agrees to plan of care.? She was given the opportunity to ask questions and all questions answered.? We will see her after the procedure.? Constipation Patient can use MiraLax and Colace on as needed basis. Patient was encouraged to increase fluid intake and activity to promote better bowel motility COLONOSCOPY Findings: Terminal Ileum: Not evaluated Cecum:? Normal Ascending Colon:? A 5-6 mm diminutive appearing polyp in the distal AC/hepatic flexure -removed with a cold biopsy Transverse Colon:? Normal Descending Colon:? Normal Sigmoid Colon:? Moderate diverticulosis Rectum:? Mild patchy erythema in the distal 2-3 cms of the rectum - random biopsies were obtained to rule out proctitis Ano-rectum:? Normal Colon preparation:? Good after copious irrigation and fair to poor in the rectosigmoid colon (0-40 cms) due to scattered solid stool balls which could not be suctioned. Impression and Post Procedure Diagnosis: Colonoscopy Findings: One small diminutive appearing polyp removed Moderate diverticulosis seen in the sigmoid colon Mild patchy erythema in the distal 2-3 cms of the rectum - random biopsies were obtained to rule out proctitis Plan: Await pathology results Patient has an appointment on 05/26/23 in the GI Clinic with Janeen Marinelli FNP-BC . Repeat Colonoscopy interval based on path results - in 3 years if polyps are adenomatous and due to fair to poor prep in the left colon (pt needs extra laxatives prior to the procedure and adult colonoscope for future colonoscopies. PATHOLOGY RESULTS Diagnosis A.? Colon, ascending, polypectomy:? Colonic mucosa with mild surface hyperplastic changes; multiple additional levels examined. B.? Rectum, biopsy:? Mildly active proctitis with crypt disarray.? See comment. COMMENT:? The findings in the rectum have borderline features for a chronic colitis (in addition to the active colitis). TODAY'S VISIT Patient is here today for follow-up and to discuss colonoscopy results. Patient denies any effects from the prep, anesthesia or procedure itself. Patient does however report of constipation and she had suboptimal prep. Because of that patient was recommended to return for colorectal screening in 3 years. Patient was found to have mild active proctitis, no polyps found. Patient denies melena, hematochezia, unintentional weight loss or ribbon like stools. Patient denies dyspepsia, dysphagia or odynophagia. Patient denies any other GI concerning symptoms. 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 Cognitive needs: No Hearing needs: No Vision needs: Yes Review of Systems Const Denies weight gain and Denies weight loss ENT Reports no additional complaints, Denies dysphagia and Denies odynophagia Card Reports no additional complaints Resp Reports no additional complaints GI Denies abdominal pain, Denies belching, Denies melena, Denies bloating, Reports constipation, Denies dysphagia, Denies excessive flatus, Denies dyspepsia, Denies heartburn, Denies diarrhea, Denies loose stools, Denies nausea, Denies odynophagia and Denies vomiting Reports no additional complaints Musc Reports no additional complaints Neuro Reports no additional complaints Psych Reports no additional complaints Endo Reports no additional complaints Physical Exam Vital Signs: Last Vital Signs Pulse 69 05/26/23 08:14 BP 107/63 05/26/23 08:14 BMI result Body Mass Index 27.6 Const General: healthy appearing, no acute distress and well developed Nutritional Appearance: well nourished Orientation/consciousness: patient oriented x3 HEENT Head: Yes normal to inspection, Yes normocephalic and Yes atraumatic Face and sinus: Yes normal facial exam Mouth: Normal oral and palatal mucosa present Throat: Yes posterior oropharynx normal, Yes tonsils normal and Yes uvula midline Eyes General: appearance normal, both eyes and all related structures Neck Neck: Yes normal visual inspection, Yes full ROM and Yes trachea midline Thyroid: Thyroid normal Resp Effort & Inspection: normal respiratory effort, able to speak in complete sentences, no tracheal deviation and symmetric chest movement Auscultation: clear to auscultation bilaterally Cardio Rate: regular rate Heart sounds: S1 normal heart sound present and S2 normal heart sound present GI Inspection: Yes normal to inspection and No distended Palpation (GI): Soft to palpation, not firm, nontender and No hepatosplenomegaly present Auscultation: normal bowel sounds General: Yes no CVA tenderness Back/Spine/Pelvis Back: no CVA tenderness Skin General skin exam: elasticity normal, turgor normal and dry skin Neuro General: patient oriented x3 Psych Appearance: grossly normal Mental Status: mental status grossly normal Speech and movement: Normal speech and movement present Affect: normal affect Assessment & Plan Assessment & Plan (1) Proctitis: Code(s): K62.89 - Other specified diseases of anus and rectum Plan: Mild active proctitis found. Will send lactoferrin fecal. If positive we can treat her with mesalamine suppositories. Patient denies any rectal pain or discomfort. Denies any rectal bleeding. (2) Status post colonoscopy: Code(s): Z98.890 - Other specified postprocedural states Plan: Patient denies any ill effects from the prep, anesthesia or procedure itself. Patient was recommended to return in 3 years due to suboptimal prep. No polyps found. (3) Diverticulosis: Code(s): K57.90 - Diverticulosis of intestine, part unspecified, without perforation or abscess without bleeding Plan: Diverticulosis of sigmoid colon. Discussed with patient high-fiber diet. Drinking plenty of fluids. Patient can take [id number] probiotics. (4) Constipation: Code(s): K59.00 - Constipation, unspecified Qualifiers: Constipation type: slow transit constipation Qualified Code(s): K59.01 - Slow transit constipation Plan: Patient can continue taking MiraLax daily. She will follow-up with our office on as needed basis. Follow-up pending lab results. Patient is agreeable to this plan and verbalizes understanding of instructions. She was given the opportunity to ask questions all questions answered. Thank you for allowing me to participate in her care Orders: Orders Lactoferrin, Fecal, Quant. Today K62.89 - Other specified diseases of anus and rectum Medications: New polyethylene glycol 3350 (Miralax) 17 grams PO DAILY 510 grams 2RF Coding Level of Care Code Est Pt Level 4 (56563) Diagnoses Proctitis K62.89 Status post colonoscopy Z98.890 Diverticulosis K57.90 Constipation K59.01 Constipation type: slow transit constipation Time Spent (min) 35 Comment 20 minutes spent with patient and additional 15 minutes spent reviewing her records
[2023-05-26 08:14] VITALS: BP 107/63; PULSE 69; BMI 27.6
== END 2023-05-26 08:30 | disposition home or self-care (01) ==
PROVIDERS: PCP Internal Medicine; Visit Provider Nurse Practitioner Family
DX: K62.89 Other specified diseases of anus and rectum (principal); Z98.890 Other specified postprocedural states; K57.90 Diverticulosis of intestine, part unspecified, without perforation or abscess without bleeding; K59.01 Slow transit constipation
CPT/HCPCS: 99214

== ENCOUNTER → 2023-05-26 08:07 | Outpatient (BNVA) | payer BC, SELFPAY | PROVIDERS: PCP Internal Medicine; Visit Provider Nurse Practitioner Family ==

== ENCOUNTER 2023-05-28 20:15 | Outpatient (REF) | payer BC, SELFPAY ==
[2023-06-04 16:29] LABS: Lactoferrin, Fecal, Quant. 7.25 mcg/mL (<7.25)
== END 2023-05-28 20:16 | disposition home or self-care (01) ==
LOC: HO.HMGCLNP 20:15
PROVIDERS: PCP Internal Medicine; Visit Provider Nurse Practitioner Family
DX: K62.89 Other specified diseases of anus and rectum (principal)
CPT/HCPCS: 83631

== ENCOUNTER 2023-06-25 13:05 | Outpatient (AMB) | payer BC, SELFPAY ==
[2023-06-25 13:06] VITALS: BP 106/70; PULSE 124; O2SAT 98; BMI 26.8
--- NOTE | 2023-06-25 13:06 | MHC.PC.OV ---
Vital Signs 06/25/23 13:06 Height 5 ft 4 in Weight 156 lb 6 oz BMI 26.8 BP 106/70 Blood Pressure Location Rt brachial Position Sitting Pulse 124 H Pulse Source Pulse Oximeter Pulse Oximetry (%) 98 Oxygen Delivery Method Room Air Intake Visit Reasons: Irregular heartbeat per apple watch Allergies No Known Allergies Allergy (Mild, Verified 06/25/23 13:06) N/A Medication List - Last Reconciled 06/25/23 by Stef Schroeder MD albuterol sulfate 90 mcg/actuation (ProAir HFA) 2 puffs inhalation Q6H PRN albuterol sulfate 90 mcg/actuation 2 puffs inhalation Q6H PRN polyethylene glycol 3350 (Miralax) 17 grams PO DAILY Tobacco use date assessed: 06/25/23 Dental Screening Dental Screen Date: 06/25/23 Did you have a dental visit in the last 12 months?: Yes Did you have a dental problem in the last 6 months where you did not have access to dental care?: No Was dental information given to patient?: Patient has dentist HPI Irregular heartbeat per apple watch HPI Details Patient is 52-year-old female came in today with a chief complaint of palpitations which started 48-72 hours ago Patient says that she checked on her Apple watch also and it was showing irregularity She has no lightheadedness or dizziness read is no chest pain or shortness of breath but she is feeling palpitations and irregularity. EKG done today shows sinus tachycardia I have ordered Holter monitor for the patient as well as echocardiogram I have sent message to cardiology office for urgent appointment for the patient Patient was notified to go to emergency room if she start having shortness of breath, chest pain, lightheadedness, or dizziness. 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 1. Little interest or pleasure in doing things: not at all 2. Feeling down, depressed, or hopeless: not at all 3. Trouble falling or staying asleep, or sleeping too much: not at all 4. Feeling tired or having little energy: not at all 5. Poor appetite or overeating: not at all 6. Feeling bad about yourself - or that you are a failure or have let yourself or your family down: not at all 7. Trouble concentrating on things, such as reading the newspaper or watching television: not at all 8. Moving or speaking so slowly that other people could have noticed. Or the opposite - being so fidgety or restless that you have been moving around a lot more than usual: not at all 9. Thoughts that you would be better off or of hurting yourself in some way: not at all Total score: 0 Depression Screening Interpretation: Negative 30720 - PHQ-9 Billing: Yes Source: Developed by Drs. Farshad Orozco, Ramila Martinez, Gigi Wiggins and colleagues, with an educational luz marina from [employer]. Thrive Questionnaire Date Thrive assessed: 06/25/23 I am a: Patient What is your living situation today?: I have a steady place to live Within the past 12 months, did the food you bought not last and you didn't have the money to get more?: Never true Within the past 12 months, did you worry whether your food would run out before you got money to buy more?: Never true Do you have trouble paying for medicines?: No Do you have trouble getting transportation to medical appointments?: No Do you have trouble paying your heating and electricity bill?: No Do you have trouble taking care of your child, family member or friend?: No Do you have trouble with day-to-day activities such as bathing, preparing meals, shopping, managing finances, etc.?: No Are you currently unemployed and looking for a job?: No Are you interested in more education?: No AUDIT C Alcohol Use Questionnaire (AUDIT-C) 1. How often do you have a drink containing alcohol?: Never 3. How often do you have six or more drinks on one occasion?: Never Total Score: 0 Score Reviewed/Action Taken: Yes CHARLIE-7 AMB Questionnaire CHARLIE-7 Date CHARLIE - 7 assessed: 06/25/23 Feeling nervous, anxious, or on edge: 0 = Not at all Not being able to stop or control worryin = Not at all Worrying too much about different things: 0 = Not at all Trouble relaxin = Not at all Being so restless that it is hard to sit still: 0 = Not at all Becoming easily annoyed or irritable: 0 = Not at all Feeling afraid as if something awful might happen: 0 = Not at all Total CHARLIE-7 score (0-4 normal; 5-9 mild; 10-14 moderate; 15-21 severe): 0 Source: Developed by Drs. Farshad Orozco, Ramila Martinez, Gigi Wiggins and colleagues, with an educational luz marina from [employer]. CHARLIE-7 Assessment Billing CHARLIE-7 Assessment Tool: CHARLIE-7 Assessment 74857 Review of Systems Const Denies chills and Denies fever(s) ENT Denies epistaxis and Denies nasal discharge Card Denies chest pain Resp Denies chest congestion, Denies cough and Denies hemoptysis GI Denies diarrhea and Denies nausea Skin/Breast Denies rash Neuro Reports no additional complaints Psych Reports no additional complaints Endo Reports no additional complaints Physical exam (Primary Care) Vital Signs: Last Vital Signs Pulse 124 H 06/25/23 13:06 BP 106/70 06/25/23 13:06 Pulse Ox 98 06/25/23 13:06 Oxygen Delivery Method Room Air 06/25/23 13:06 BMI result Body Mass Index 26.8 Tobacco/Smoking Status: Tobacco use Status Tobacco use date assessed 06/25/23 06/25/23 13:08 Patient Tobacco Use Status Never used Tobacco 06/25/23 13:08 e-Cigarette/Vaping Use Never Used 06/25/23 13:08 PHQ-9: PHQ-9 Score PHQ-9: Total score 0 06/25/23 13:25 Depression Screening Interpretation: Negative Thrive Assessment: Date of Thrive Assessment Date Thrive assessed 06/25/23 06/25/23 13:25 Const General: cooperative, comfortable and no acute distress Orientation/consciousness: patient oriented x3 HENMT Head: Yes normocephalic Eyes General: appearance normal, both eyes and all related structures Neck Neck: Yes supple Resp Effort & Inspection: normal respiratory effort, no cough and no stridor Cardio Other: Heart sounds: S1 normal heart sound present and S2 normal heart sound present Skin General skin exam: turgor normal Neuro General: patient oriented x3, tone normal and moves all extremities Extrem Right lower extremity: no edema Left lower extremity: no edema Office Procedures EKG [id number], Complete Assessment and Plan Assessment & Plan (1) Palpitations: Code(s): R00.2 - Palpitations (2) Sinus arrhythmia: Code(s): I49.8 - Other specified cardiac arrhythmias (3) Abnormal EKG: Code(s): R94.31 - Abnormal electrocardiogram [ECG] [EKG] Plan Patient is 52-year-old female came in today with a chief complaint of palpitations which started 48-72 hours ago Patient says that she checked on her Apple watch also and it was showing irregularity She has no lightheadedness or dizziness read is no chest pain or shortness of breath but she is feeling palpitations and irregularity. EKG done today shows sinus tachycardia I have ordered Holter monitor for the patient as well as echocardiogram I have sent message to cardiology office for urgent appointment for the patient Patient was notified to go to emergency room if she start having shortness of breath, chest pain, lightheadedness, or dizziness. Orders: Orders Complete Blood Count Auto Diff Today I49.8 - Other specified cardiac arrhythmias, R00.2 - Palpitations, R94.31 - Abnormal electrocardiogram [ECG] [EKG] Magnesium Today I49.8 - Other specified cardiac arrhythmias, R00.2 - Palpitations, R94.31 - Abnormal electrocardiogram [ECG] [EKG] CA echo transthoracic complete Today I49.8 - Other specified cardiac arrhythmias, R00.2 - Palpitations, R94.31 - Abnormal electrocardiogram [ECG] [EKG] AMB EKG-In Office Today I49.8 - Other specified cardiac arrhythmias, R00.2 - Palpitations, R94.31 - Abnormal electrocardiogram [ECG] [EKG] Comprehensive Met. Panel Today I49.8 - Other specified cardiac arrhythmias, R00.2 - Palpitations, R94.31 - Abnormal electrocardiogram [ECG] [EKG] TSH reflex Free T4 Today I49.8 - Other specified cardiac arrhythmias, R00.2 - Palpitations, R94.31 - Abnormal electrocardiogram [ECG] [EKG] ECG holter monitor 24 hour Today I49.8 - Other specified cardiac arrhythmias, R00.2 - Palpitations, R94.31 - Abnormal electrocardiogram [ECG] [EKG] Troponin-I High Sensitivity Today I49.8 - Other specified cardiac arrhythmias, R00.2 - Palpitations, R94.31 - Abnormal electrocardiogram [ECG] [EKG] Referrals Cardiology Referral I49.8 - Other specified cardiac arrhythmias, R00.2 - Palpitations, R94.31 - Abnormal electrocardiogram [ECG] [EKG] Coding Level of Care Code Est Pt Level 4 (48865) Diagnoses Palpitations R00.2 Sinus arrhythmia I49.8 Abnormal EKG R94.31 CPT Codes EKG - CPT: 10534-[id number], Complete ([id number]) Additional Codes CHARLIE-7 Assessment Billing - CHARLIE-7 Assessment Tool: CHARLIE-7 Assessment 00866 ([id number])
== END 2023-06-25 13:34 | disposition home or self-care (01) ==
PROVIDERS: PCP Internal Medicine; Visit Provider Internal Medicine
DX: R00.2 Palpitations (principal); I49.8 Other specified cardiac arrhythmias; R94.31 Abnormal electrocardiogram [ECG] [EKG]
CPT/HCPCS: 93000; 99214

== ENCOUNTER 2023-06-25 13:35 | Outpatient (REF) | payer BC, SELFPAY ==
[2023-06-25 16:16] LABS: MANUAL DIFF FLAG NO
[2023-06-25 16:19] LABS: Basophils Percent Auto 0.3 % (0-2); Eosinophils Absolute Auto 0.1 X10*3/uL (0.0-0.4); Eosinophils Percent Auto 1.1 % (0-4); Imm Gran Abs Auto 0.02 X10*3/uL (0.00-0.03); Imm Gran Pct Auto 0.2 % (0.0-0.4); Lymphocytes Absolute Auto 1.7 X10*3/uL (1.2-4.9); Lymphocytes Percent Auto 18.5 % (20-40); Mean Corpuscular HGB Conc 33.3 g/dl (31.0-35.0); Mean Corpuscular Hemoglobin 31.9 pg (27.0-33.0); Mean Corpuscular Volume 95.7 fL (80.0-98.0); Mean Platelet Volume 11.1 fL (9.4-12.3); Monocytes Absolute Auto 0.6 X10*3/uL (0.1-1.2); Monocytes Percent Auto 6.9 % (2-11); Neutrophils Absolute Auto 6.6 x10*3/uL (2.0-8.3); Platelet Count 307 X10*3/uL (160-400); Red Blood Count 4.39 X10*6/uL (4.20-5.50); Red Cell Distribution Width 12.7 % (11.0-16.0)
[2023-06-25 16:38] LABS: Alanine Aminotransferase 21 U/L (0-31); Albumin Level 4.4 g/dL (3.5-5.0); Alkaline Phosphatase 73 U/L (39-117); Anion Gap 13 (12-20); Aspartate Amino Transferase 16 U/L (5-31); Bilirubin Total 0.4 mg/dL (0.0-1.0); Blood Urea Nitrogen 23 mg/dL (9-16); Calcium 10.2 mg/dL (8.4-10.2); Carbon Dioxide 28 mmol/L (22-29); Chloride 105 mmol/L (96-108); Estimated Glomerular Filt Rate > 60; Glucose Random 101 mg/dL (60-115); Magnesium 2.2 mg/dL (1.6-2.6); Potassium 4.1 mmol/L (3.3-5.1); Sodium 142 mmol/L (135-145); Total Protein 7.6 g/dL (6.5-8.0)
[2023-06-25 16:44] LABS: Troponin-I High Sensitivity < 2.7 ng/L (<3.5-17.0)
[2023-06-25 16:56] LABS: TSH reflex Free T4 1.73 uIU/mL (0.32-4.0)
== END 2023-06-25 13:36 | disposition home or self-care (01) ==
LOC: HO.HMGCLDS 13:35
PROVIDERS: PCP Internal Medicine; Visit Provider Internal Medicine
DX: I49.8 Other specified cardiac arrhythmias (principal); R94.31 Abnormal electrocardiogram [ECG] [EKG]; R00.2 Palpitations
CPT/HCPCS: 36415; 80053; 83735; 84443; 84484; 85025

== ENCOUNTER → 2023-06-30 10:26 | Outpatient (REF) | payer BC, SELFPAY ==
--- NOTE | 2023-06-30 10:31 | HM_ITS ---
Conclusion: 1. Patient was monitored for total period of 1 day 2. Baseline was normal sinus rhythm with average heart of 74 beats per minute 3. No significant pauses noted 4. Frequent PACs noted with total burden of 5.7% 5. Patient reported 3 symptoms of fluttering and/or palpitations correlating with isolated PACs MTDD
== END ==
LOC: HO.CARD 10:26
PROVIDERS: Visit Provider Psychiatry & Neurology Neurology
DX: I49.8 Other specified cardiac arrhythmias (principal); R00.2 Palpitations; R94.31 Abnormal electrocardiogram [ECG] [EKG]
CPT/HCPCS: 93225

== ENCOUNTER → 2023-06-30 10:31 | Outpatient (BNV) | payer BC, SELFPAY | PROVIDERS: Visit Provider Internal Medicine Cardiovascular Disease | DX: I49.1 Atrial premature depolarization (principal) | CPT/HCPCS: 93227 ==

== ENCOUNTER → 2023-07-01 12:52 | Outpatient (REF) | payer BC, SELFPAY ==
--- NOTE | 2023-07-01 12:54 | CA_ITS ---
Transthoracic Echocardiogram Patient (Last, First, Middle): Shira Jacobs B Gender: Female Date of : 1970 Age: 52 Procedure Date: 07/01/2023 Procedure Type: Transthoracic Echocardiogram Location: OP Height: 162.56 cm Weight: 68.04 kg BSA: 1.73 m2 Heart Rate: bpm BP: 106 / 78 mmHg Mysql Developer: PASQUALE/TAYLER Referring MD: Stef Schroeder MD Swing Tender: Warren Roque MD Symptoms: I49.8 - Other specified cardiac arrhythmias Study Quality: Good ECG Rhythm: Sinus Conclusions: - Normal study Findings Left Ventricle Normal left ventricular size, thickness, and systolic function. The visually estimated ejection fraction is between 60-65%. Diastolic function is normal for age. Peak GLS is -21%, within normal limits. Right Ventricle Normal right ventricular cavity size and systolic function. Atria Both atria are normal in size. There is no evidence of interatrial shunt. Aortic Valve Normal aortic valve structure and function. There is no aortic valve stenosis. There is no aortic valve regurgitation. Mitral Valve Normal mitral valve structure and function. There is no mitral valve regurgitation. There is no mitral valve stenosis. Pulmonic Valve The pulmonic valve is normal. There is trace pulmonic valve regurgitation. Tricuspid Valve Normal tricuspid valve structure. There is trace tricuspid valve regurgitation. The right ventricular systolic pressure is normal. The right ventricular systolic pressure is 19 mmHg. Normal right atrial pressure. There is no evidence of pulmonary hypertension. Great Vessels All visible segments of the aorta are normal in size. The visualized portions of the pulmonary artery and branches are normal. Venous The inferior vena cava is normal in size and collapses greater than 50% with inspiration. Pericardium/Pleural There is no evidence of pericardial effusion. Prior Study Comparison No prior study available for comparison. Measurements 2D Linear Measurements IVSd: 0.84 0.6-0.9/0.6-1.0 cm LVIDd: 4.36 3.9-5.3/4.2-5.9 cm LVIDd Index: 2.52 2.4-3.2/2.2-3.1 cm/m2 LVIDs: 3.01 2.0-3.6 cm LVPWd: 0.78 0.7-1.1 cm LA Diam: 2.70 2.7-3.8/3.0-4.0 cm LAIDs Index: 1.56 1.5-2.3 cm/m2 LV Mass: 135.76 67-162/88-224 g LV Mass Index: 78.47 43-95/49-115 g/m2 LVOT Diam: 1.90 3.0+(-)1.3 cm 2D Systolic Function EF 4C: 64.90 >55% EF 2C: 57.80 >55% EF BiP: 59.70 >55% Mitral Valve MV Pk E: 0.88 MV PK A: 0.52 MV Decel Time: 188.00 E/A: 1.70 E'Lateral: 12.20 E'Medial: 10.20 E/E' Med: 8.70 E/E' Lat: 7.20 PHT: 55.00 MVA PHT: 4.00 Decel Hettinger: 4.68 Aortic Valve AoV Pk Khanh: 1.26 AoV Mn Khanh: 0.98 AoV VTI: 0.31 AoV Pk Grad: 6.00 Aov Mn Grad: 4.00 PIOTR Cont.VTI: 2.40 LVOT LVOT Pk Khanh: 1.18 LVOT Mn Khanh: 0.76 LVOT VTI: 0.26 LVOT Pk Grad: 6.00 LVOT Mn Grad: 3.00 LVOT Diam: 1.90 LVOT Area: 2.84 Diastolic Function MV Pk E: 0.88 MV Pk A: 0.52 E/A: 1.70 E'Medial: 10.20 E/E' Med: 8.70 E' Laterial: 12.20 E/E' Lat: 7.20 Right Ventricle TAPSE (mm): 24.60 TVS' Khanh: 13.20 Tricuspid Valve TR Pk Khanh: 2.00 TR Pk Grad: 16.00 RA Press: 3.00 RVSP: 19.00 Great Vessels Aorta Sinus of Valsalva: 3.09 2.0-3.[address] Ridge: 2.46 1.7-3.4 cm Ao Asc: 3.10 2.1-3.4 cm Updated in Other Vendor System with Status of Final Warren Roque MD electronically signed on 07/01/2023 3:06:42 PM with status of Final
== END ==
LOC: HO.CARD 12:52
PROVIDERS: Visit Provider Internal Medicine
DX: I49.8 Other specified cardiac arrhythmias (principal); R00.2 Palpitations; R94.31 Abnormal electrocardiogram [ECG] [EKG]
CPT/HCPCS: 93306; 93356

== ENCOUNTER → 2023-07-01 12:54 | Outpatient (BNV) | payer BC, SELFPAY | PROVIDERS: Visit Provider Internal Medicine Cardiovascular Disease | DX: I49.8 Other specified cardiac arrhythmias (principal); R94.31 Abnormal electrocardiogram [ECG] [EKG] | CPT/HCPCS: 93306 ==

== ENCOUNTER 2023-07-02 14:53 | Outpatient (AMB) | payer BC, SELFPAY ==
--- NOTE | 2023-07-02 14:56 | A.OFFVIS_ITS ---
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 The last few days, she has been having sensations of heart racing. She had a get together with some friends and in that setting, the symptoms started. No previous history of anything cardiac. No arrhythmias known to her. Otherwise, fairly active with no limitations. However, not on endurance athlete extra. Apart from the palpitations, no other cardiac symptoms. No angina or shortness of breath or any other symptoms. No history of alcohol excess. Generally healthy lifestyle. [facility] Medical History Diverticulosis COVID-19 Cough Surgical History Hx of colonoscopy Hx of cholecystectomy History of section Family History Father No problems noted. Mother No problems noted. 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 Cognitive needs: No Hearing needs: No Vision needs: Yes Review of Systems Const Denies chills, Denies daytime sleepiness, Denies fatigue, Denies fever(s), Denies frequent falls, Denies poor appetite, Denies snoring, Denies stops breathing during sleep, Denies weakness, Denies weight gain and Denies weight loss Eyes Denies loss of vision ENT Denies dizziness and Denies hearing loss Card Denies chest pain, Denies claudication, Denies leg edema, Denies lightheadedness, Denies palpitations, Denies dyspnea, Denies dyspnea on exertion and Denies orthopnea Resp Denies cough, Denies excessive phlegm production, Denies dyspnea, Denies dyspnea on exertion, Denies snoring and Denies wheezing GI Denies abdominal pain, Denies hematochezia, Denies change in bowel habits, Denies nausea and Denies vomiting Denies urinary frequency and Denies dysuria Musc Denies arthralgias, Denies muscle weakness, Denies numbness and Denies other (frequent falls) Skin/Breast Denies nail changes and Denies rash Neuro Denies Abnormal speech present, Denies dizziness, Denies frequent falls, Denies loss of vision, Denies memory loss, Denies numbness and Denies weakness Psych Denies depression and Denies memory loss Endo Denies fatigue and Denies palpitations Storm/Lymph Reports easy bruising and Reports other (anemia) Aller/Immun Denies wheezing Physical Exam Vital Signs: Last Vital Signs Pulse 92 07/02/23 14:57 BP 120/70 07/02/23 14:57 BMI result Body Mass Index 26.1 Const General: comfortable and no acute distress Orientation/consciousness: patient oriented x3 HEENT Other: Unremarkable Head: Yes normal to inspection Neck Neck: Yes normal visual inspection Chest Chest palpation & inspection: normal inspection of the chest Resp Auscultation: clear to auscultation bilaterally Cardio Palpation: normal PMI Heart sounds: S1 normal heart sound present, S2 normal heart sound present, no gallops, no murmurs and no rubs GI Palpation (GI): Soft to palpation Back/Spine/Pelvis Other: unremarkable Skin General skin exam: no rashes or lesions noted Neuro General: patient oriented x3 Speech: No Abnormal speech present Extrem General: Yes normal to inspection Psych Mental Status: mental status grossly normal Office Procedures EKG Details: EKG with sinus rhythm at 100/Min; premature atrial contractions; [place] [address]-[id number], Complete Assessment & Plan Assessment & Plan (1) Atrial arrhythmia: Code(s): I49.8 - Other specified cardiac arrhythmias Plan Apple watch data reviewed. Some strips labeled as atrial fibrillation but difficult to say if it is just sinus with PACs rather. There is also lot of artifact. In the baseline EKG today, sinus rhythm with PACs. In other EKG from last week, again sinus rhythm with PACs. In the Holter, underlying rhythm is sinus with an average rate of 74/Min. Frequent PACs. Echocardiogram is unremarkable. Overall, symptoms probably from sinus rhythm and frequent supraventricular ectopy. Underlying atrial fibrillation will also need to be excluded. As the monitor was only for 24 days, we will do another monitor for about 2 weeks especially as she felt symptoms were not too prominent at the time of Holter. Based on this, plan medications, possibly some beta-blockers. Otherwise, reassurance only this time. If any concerning symptoms or excessive increase in heart rate, she will contact us. Orders: Orders ECG 14 day holter monitor Today I49.8 - Other specified cardiac arrhythmias, R00.2 - Palpitations Coding Level of Care Code New Pt Level 4 (76290) Diagnoses Atrial arrhythmia I49.8 CPT Codes EKG - CPT: 89015-Vqkjzrhyftnpulanc, Complete ([id number])
[2023-07-02 14:57] VITALS: BP 120/70; PULSE 92; BMI 26.1
== END 2023-07-02 15:40 | disposition home or self-care (01) ==
PROVIDERS: PCP Internal Medicine; Visit Provider Internal Medicine
DX: I49.8 Other specified cardiac arrhythmias (principal)
CPT/HCPCS: 93010; 99204

== ENCOUNTER → 2023-07-02 14:53 | Outpatient (BNVA) | payer BC, SELFPAY | PROVIDERS: PCP Internal Medicine; Visit Provider Internal Medicine | DX: I49.8 Other specified cardiac arrhythmias (principal) | CPT/HCPCS: 93005 ==

== ENCOUNTER → 2023-07-03 08:42 | Outpatient (REF) | payer BC, SELFPAY ==
--- NOTE | 2023-07-03 08:47 | HM_ITS ---
* Total monitoring time about 2 weeks. * Underlying rhythm is sinus. Average ventricular rate 79/Min. Range 51 to 141/Min. * Frequent supraventricular ectopy with a burden of about 12%. Several brief runs noted. Longest 7 beats. * Very rare ventricular ectopy with minimal burden. * No significant pauses or AV blocks. * No patient markers. * Patient diary reports shortness of breath, palpitations, chest heaviness but no times are noted. MTDD
== END ==
LOC: HO.CARD 08:42
PROVIDERS: PCP Internal Medicine; Visit Provider Internal Medicine
DX: R00.2 Palpitations (principal); I49.8 Other specified cardiac arrhythmias
CPT/HCPCS: 93246

== ENCOUNTER 2023-07-03 13:00 | Outpatient (RCR) | payer BC, SELFPAY ==
--- NOTE | 2023-05-21 10:14 | MHC.OT.EP ---
[address] [phone] Occupational Therapy Plan of Care Patient Name: Shira Jacobs Date of Evaluation: 05/21/23 Diagnosis: Left wrist malunion repair w/ ORIF and CTR Pain Location: Pain free at rest Mild pain w/ slight movements Pain Score: 1 Pain Scale Used: Numeric (0 - 10) Aggravating Factors: *Not doing aggravating activities* Alleviating Factors: Occasional ibuprophen, enjoys heat in the shower Assessment: 52 yo right hand dominant female was reffing a basketball game, fell backwards onto her left wrist and went to the ED that day. She was referred to [facility] and was post-op CRPP of left distal radius, but continued to have significant difficulties w/ pain and movement. She sought second opinion at [facility] and she is now post-op malunion repair with ORIF of radius and CTR. She wore post-op splint for couple weeks, then in clam shell orthosis, which she is wearing on assessment today. She has been working on digit ROM, but has end range stiffness and decreased strength limiting ability to grasp. Wrist and forearm ROM are significantly limited and she has been cleared to progress forearm ROM and gentle wrist AROM in shower w/ clamshell removed, other continues to wear for support at all times. She will require cont'd therapy services to progress range and strength w/ goal of returning to work and daily activities w/ good functional use. Frequency and Duration: The patient will be seen 2x/wk for 8 weeks Short Term Goals: Ind w/ HEP Ind w/ edema, soft tissue and scar management techniques AROM digits tip-palm w/ ease Forearm sup to 40 degrees Forearm pro to 75 degrees Senior Care Goals: AROM digits tip-DPC Gross grasp >40lb Forearm rotation to 80/70 Wrist ext to 55 degrees Wrist flex to 55 degrees Pt to demo good use of left hand w/ bimanual object manipulation tasks Pt to demo functional lift and carry >20lb Treatment Plan: Therapeutic Exercise Therapeutic Activity Home Exercise Program Splinting Patient Education Desensitization/Sensory Re-ed Edema Control ADL Training Paraffin Fluidotherapy MHP Cold Packs Joint Mobilization Soft Tissue Mobilization Kinesiotaping Electronically Signed By: Yamilet Parra MS OTR/L Please Sign and return to therapist. Thank you once again for your referral.
== END 2023-09-01 13:28 | disposition home or self-care (01) ==
LOC: HO.OT 13:00
PROVIDERS: PCP Internal Medicine; Visit Provider Student in an Organized Health Care Education/Training Program
DX: M25.532 Pain in left wrist (principal); Z98.890 Other specified postprocedural states
CPT/HCPCS: 97110; 97140; 97165

== ENCOUNTER 2023-08-06 14:02 | Outpatient (AMB) | payer BC, SELFPAY ==
[2023-08-06 14:16] VITALS: BP 114/60; PULSE 74; BMI 25.9
--- NOTE | 2023-08-06 14:16 | MHC.OFFVIS ---
Intake Vital Signs 08/06/23 14:16 Height 5 ft 4 in Weight 150 lb 12.739 oz BMI 25.9 BP 114/60 Blood Pressure Location Lt brachial Position Sitting Pulse 74 Intake Visit Reasons: f/up holter 14 day Intake Note: follow up Fibre Optic Cable Splicer Required: No Accompanied by: Self / Same As Patient Allergies No Known Allergies Allergy (Mild, Verified 08/06/23 14:17) N/A Medication List - Last Reconciled 08/06/23 by Mario Carlton MD albuterol sulfate 90 mcg/actuation (ProAir HFA) 2 puffs inhalation Q6H PRN metoprolol tartrate 12.5 mg (1/2 x 25 mg) PO ONCE PRN HPI HPI Comments History of Present Illness Details Shira returns for follow-up. Recently seen in consultation regarding palpitations. After a get together with some friends, she started having palpitations but there is no prior history of atrial fibrillation or in fact any arrhythmias. She underwent an echocardiogram as well as 2 Holter monitors but overall just showing supraventricular ectopy only. Now she states that her symptoms are essentially resolved and she is back to normal self. There is no history of alcohol excess. No major comorbidities. [facility], [facility] Medical History (Updated 07/02/23 @ 15:13 by Mario Carlton MD) Diverticulosis COVID-19 Cough Surgical History (Updated 08/06/23 @ 14:19 by Nataliya Dobbins) History of surgery on left wrist Hx of colonoscopy Hx of cholecystectomy History of section Family History Father No problems noted. Mother No problems noted. 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 Cognitive needs: No Hearing needs: No Vision needs: Yes Review of Systems Const Denies weakness ENT Denies dizziness Card Denies chest pain, Denies chest pain with activity, Denies syncope, Denies rapid heart rate, Denies pedal edema, Denies edema, Denies leg edema, Denies lightheadedness, Denies palpitations, Denies dyspnea, Denies dyspnea on exertion and Denies orthopnea Resp Denies cough, Denies dyspnea and Denies dyspnea on exertion GI Denies hematochezia and Denies change in stool character Musc Denies abnormal gait, Denies muscle cramps, Denies muscle weakness, Denies numbness, Denies radiating pain into limb and Denies tingling Neuro Denies abnormal gait, Denies dizziness, Denies syncope, Denies numbness, Denies tingling and Denies weakness Endo Denies palpitations Physical Exam Vital Signs: Last Vital Signs Pulse 74 08/06/23 14:16 BP 114/60 08/06/23 14:16 BMI result Body Mass Index 25.9 Const General: comfortable and no acute distress Orientation/consciousness: patient oriented x3 HEENT Other: Unremarkable Head: Yes normal to inspection Neck Neck: Yes normal visual inspection Chest Chest palpation & inspection: normal inspection of the chest Resp Auscultation: clear to auscultation bilaterally Cardio Palpation: normal PMI Heart sounds: S1 normal heart sound present, S2 normal heart sound present, no gallops, no murmurs and no rubs GI Palpation (GI): Soft to palpation Back/Spine/Pelvis Other: unremarkable Skin General skin exam: no rashes or lesions noted Neuro General: patient oriented x3 Extrem General: Yes normal to inspection Psych Mental Status: mental status grossly normal Assessment & Plan Assessment & Plan (1) Atrial arrhythmia: Code(s): I49.8 - Other specified cardiac arrhythmias Plan Cardiac studies reviewed. EKG with sinus rhythm and PACs. Holter shows underlying sinus rhythm with frequent supraventricular ectopy, burden of 12%. Apple watch data reported as atrial fibrillation but could be just sinus rhythm with PACs. There is also lot of artifact. Echocardiogram is unremarkable. Overall, she has supraventricular ectopy but no evidence of atrial fibrillation. There is increased risk of atrial fibrillation in the future. Can use a small dose of beta-blockers as necessary for her symptoms but she states she is already feeling better spontaneously. Otherwise, mainly reassurance. She can continue to monitor for arrhythmias with smart watch and send us strips for review. She agrees. Follow-up in 1 year with Holter. Orders: Orders ECG 3 day holter monitor 51 Weeks I49.8 - Other specified cardiac arrhythmias Coding Level of Care Code Est Pt Level 3 (04135) Diagnoses Atrial arrhythmia I49.8
== END 2023-08-06 14:38 | disposition home or self-care (01) ==
PROVIDERS: PCP Internal Medicine; Visit Provider Internal Medicine
DX: I49.8 Other specified cardiac arrhythmias (principal)
CPT/HCPCS: 99213

== ENCOUNTER → 2023-08-06 14:02 | Outpatient (BNVA) | payer BC, SELFPAY | PROVIDERS: PCP Internal Medicine; Visit Provider Internal Medicine ==

== ENCOUNTER 2023-08-22 08:25 | Outpatient (AMB) | payer BC, SELFPAY ==
--- NOTE | 2023-08-22 08:30 | MHC.PC.OV ---
Vital Signs 08/22/23 08:34 Height 5 ft 4 in Weight 151 lb 6 oz BMI 26.0 BP 120/72 Blood Pressure Location Rt brachial Position Sitting Pulse 80 Pulse Source Pulse Oximeter Pulse Oximetry (%) 99 Oxygen Delivery Method Room Air Intake Visit Reasons: Annual PE Allergies No Known Allergies Allergy (Mild, Verified 08/22/23 08:34) N/A Medication List - Last Reconciled 08/22/23 by Stef Schroeder MD albuterol sulfate 90 mcg/actuation (ProAir HFA) 2 puffs inhalation Q6H PRN Tobacco use date assessed: 08/22/23 Dental Screening Dental Screen Date: 08/22/23 Did you have a dental visit in the last 12 months?: Yes Did you have a dental problem in the last 6 months where you did not have access to dental care?: No Was dental information given to patient?: Patient has dentist HPI Annual PE HPI Details Patient is 52-year-old female came in today for physical examination Mammogram is due patient have an appointment Colonoscopy was May of this year next 1 will be in 3 years, it was done by [facility] Dr. Forman OBGYN visits are up-to-date , breast exams through OBGYN Patient continued to have hot flashes she will discuss it with OBGYN Labs were done June of this year reviewed Patient had 2 surgeries on her left wrist as she injured her radius after her fall Currently she have a franklin in left radius with limited range of motion in extension. PFSH Medical History Diverticulosis COVID-19 Cough Surgical History History of surgery on left wrist Hx of colonoscopy Hx of cholecystectomy History of section Family History Father No problems noted. Mother No problems noted. 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 1. Little interest or pleasure in doing things: not at all 2. Feeling down, depressed, or hopeless: not at all 3. Trouble falling or staying asleep, or sleeping too much: several days 4. Feeling tired or having little energy: not at all 5. Poor appetite or overeating: not at all 6. Feeling bad about yourself - or that you are a failure or have let yourself or your family down: not at all 7. Trouble concentrating on things, such as reading the newspaper or watching television: not at all 8. Moving or speaking so slowly that other people could have noticed. Or the opposite - being so fidgety or restless that you have been moving around a lot more than usual: not at all 9. Thoughts that you would be better off or of hurting yourself in some way: not at all Total score: 1 Depression Screening Interpretation: Negative Depression Screening Done: Yes 40429 - PHQ-9 Billing: Yes Source: Developed by Drs. Farshad Orozco, Ramila Martinez, Gigi Wiggins and colleagues, with an educational luz marina from [employer]. Thrive Questionnaire Date Thrive assessed: 08/22/23 I am a: Patient What is your living situation today?: I have a steady place to live Within the past 12 months, did the food you bought not last and you didn't have the money to get more?: Never true Within the past 12 months, did you worry whether your food would run out before you got money to buy more?: Never true Do you have trouble paying for medicines?: No Do you have trouble getting transportation to medical appointments?: No Do you have trouble paying your heating and electricity bill?: No Do you have trouble taking care of your child, family member or friend?: No Do you have trouble with day-to-day activities such as bathing, preparing meals, shopping, managing finances, etc.?: No Are you currently unemployed and looking for a job?: No Are you interested in more education?: No Please select the resources that you would like help with: None Currently or been in a relationship where the following occur: no concerns reported AUDIT C Alcohol Use Questionnaire (AUDIT-C) 1. How often do you have a drink containing alcohol?: Monthly or less 2. How many drinks containing alcohol do you have on a typical day when you are drinking?: 1 or 2 3. How often do you have six or more drinks on one occasion?: Never Total Score: 1 Score Reviewed/Action Taken: Yes CHARLIE-7 AMB Questionnaire CHARLIE-7 Date CHARLIE - 7 assessed: 08/22/23 Feeling nervous, anxious, or on edge: 1 = Several days Not being able to stop or control worryin = Not at all Worrying too much about different things: 1 = Several days Trouble relaxin = Not at all Being so restless that it is hard to sit still: 0 = Not at all Becoming easily annoyed or irritable: 1 = Several days Feeling afraid as if something awful might happen: 0 = Not at all Total CHARLIE-7 score (0-4 normal; 5-9 mild; 10-14 moderate; 15-21 severe): 3 Source: Developed by Drs. Farshad Orozco, Ramila Martinez, Gigi Wiggins and colleagues, with an educational luz marina from [employer]. CHARLIE-7 Assessment Billing CHARLIE-7 Assessment Tool: CHARLIE-7 Assessment 08476 Review of Systems Const Denies chills, Denies fever(s) and Denies headache(s) Eyes Denies blurry vision ENT Denies headache(s), Denies nasal discharge, Denies nasal obstruction, Denies odynophagia and Denies sinus pain Card Denies chest pain at rest and Denies chest pain with activity Resp Denies cough and Denies hemoptysis GI Denies diarrhea, Denies odynophagia, Denies vomiting and Denies hematemesis Reports as per HPI Musc Denies abnormal gait Skin/Breast Reports as per HPI Neuro Denies Neuro-related abnormal movements, Denies Abnormal speech present, Denies abnormal gait, Denies headache(s) and Denies Sensory deficit (Neuro) Psych Denies mood swings and Denies paranoia Endo Reports as per HPI Storm/Lymph Reports as per HPI Aller/Immun Reports as per HPI Physical exam (Primary Care) Vital Signs: Last Vital Signs Pulse 80 08/22/23 08:34 BP 120/72 08/22/23 08:34 Pulse Ox 99 08/22/23 08:34 Oxygen Delivery Method Room Air 08/22/23 08:34 BMI result Body Mass Index 26.0 Tobacco/Smoking Status: Tobacco use Status Tobacco use date assessed 08/22/23 08/22/23 08:35 Patient Tobacco Use Status Never used Tobacco 08/22/23 08:32 e-Cigarette/Vaping Use Never Used 08/22/23 08:32 PHQ-9: PHQ-9 Score PHQ-9: Total score 1 08/22/23 08:42 Depression Screening Interpretation: Negative Thrive Assessment: Date of Thrive Assessment Date Thrive assessed 08/22/23 08/22/23 08:42 Currently or been in a relationship where the following occur: no concerns reported Const General: cooperative, comfortable and no acute distress Orientation/consciousness: patient oriented x3 HENMT Head: Yes normocephalic and Yes atraumatic Eyes General: appearance normal, both eyes and all related structures Pupils: Equal, round and reactive pupils present EOM: EOMs intact bilaterally Neck Neck: Yes supple and No lymphadenopathy Thyroid: Thyroid normal Lymphatic: no lymphadenopathy noted Resp Effort & Inspection: normal respiratory effort and able to speak in complete sentences Auscultation: clear to auscultation bilaterally Cardio Heart sounds: S1 normal heart sound present and S2 normal heart sound present GI Palpation (GI): Soft to palpation and nontender Auscultation: normal bowel sounds General: Yes no CVA tenderness Back/Spine/Pelvis Back: no CVA tenderness Skin General skin exam: elasticity normal and turgor normal Neuro General: patient oriented x3 and gait normal Cranial nerves: Yes Equal, round and reactive pupils present Speech: No Abnormal speech present Sensory Exam: No Sensory deficit (Neuro) Coordination: tandem gait normal and Romberg test negative Extrem General: Yes normal exam except as noted and No edema Assessment and Plan Assessment & Plan (1) Encounter for general adult medical examination with abnormal findings: Code(s): Z00.01 - Encounter for general adult medical examination with abnormal findings (2) Chronic colitis: Code(s): K52.9 - Noninfective gastroenteritis and colitis, unspecified (3) Proctitis: Code(s): K62.89 - Other specified diseases of anus and rectum (4) Diverticulosis: Code(s): K57.90 - Diverticulosis of intestine, part unspecified, without perforation or abscess without bleeding (5) Hot flashes: Code(s): R23.2 - Flushing Plan Patient is 52-year-old female came in today for physical examination Mammogram is due patient have an appointment Colonoscopy was May of this year next 1 will be in 3 years, it was done by [facility] Dr. Forman Report showed diverticulosis with chronic colitis and proctitis OBGYN visits are up-to-date , breast exams through OBGYN Patient continued to have hot flashes she will discuss it with OBGYN Labs were done June this year reviewed Patient had 2 surgeries on her left wrist as she injured her radius after her fall Currently she have a franklin in left radius with limited range of motion in extension. Palpitations that patient was feeling resolved on its own she never took metoprolol Flu vaccine declined Coding Level of Care Code Est Pt Prev Care 40-64y(97882) Diagnoses Encounter for general adult medical examination with abnormal findings Z00.01 Chronic colitis K52.9 Proctitis K62.89 Diverticulosis K57.90 Hot flashes R23.2 Additional Codes CHARLIE-7 Assessment Billing - CHARLIE-7 Assessment Tool: CHARLIE-7 Assessment 62211 ([id number])
[2023-08-22 08:34] VITALS: BP 120/72; PULSE 80; O2SAT 99; BMI 26.0
== END 2023-08-22 08:53 | disposition home or self-care (01) ==
PROVIDERS: Visit Provider Internal Medicine
DX: Z00.00 Encounter for general adult medical examination without abnormal findings (principal); K52.9 Noninfective gastroenteritis and colitis, unspecified; K62.89 Other specified diseases of anus and rectum; K57.90 Diverticulosis of intestine, part unspecified, without perforation or abscess without bleeding; R23.2 Flushing
CPT/HCPCS: 99396

== ENCOUNTER 2023-09-04 07:54 | Outpatient (REF) | payer BC, SELFPAY ==
--- NOTE | ~2023-09-04 | MM_ITS ---
EXAMINATION: MM SCREENING DIGITAL BREAST TOMOSYNTHESIS, BILATERAL CLINICAL INFORMATION: Screening. Asymptomatic. COMPARISON: Mammography: This study is compared with prior exams dating back to 2019. TECHNIQUE: Digital breast tomosynthesis is performed in both the craniocaudal and mediolateral oblique views along with computer-aided detection (CAD). Synthesized 2D images are generated from the tomosynthesis. FINDINGS: The breasts are heterogeneously dense, which may obscure small masses (ACR BI-RADS breast composition Category c). There are no significant masses, abnormal calcifications, or other abnormalities. There is a coarse, benign, unchanged calcification in the lateral aspect of the left breast. MM/MM tomosynthesis screening BI IMPRESSION: No mammographic evidence of malignancy. ASSESSMENT: BI-RADS BI-RADS 2 - Benign Findings RECOMMENDATION: Routine annual mammography screening. 1 year F/U This examination should not preclude the clinical evaluation of a suspicious palpable abnormality. This patient's information was entered into a reminder system with a target due date for their next mammogram.
== END 2023-09-04 07:55 | disposition home or self-care (01) ==
LOC: HO.MAMMO 07:54
PROVIDERS: PCP Internal Medicine; Visit Provider Obstetrics & Gynecology
DX: Z12.31 Encounter for screening mammogram for malignant neoplasm of breast (principal)
CPT/HCPCS: 77063; 77067

== ENCOUNTER → 2023-09-04 08:00 | Outpatient (BNV) | payer BC, SELFPAY | PROVIDERS: PCP Internal Medicine; Visit Provider Radiology Diagnostic Radiology | DX: Z12.31 Encounter for screening mammogram for malignant neoplasm of breast (principal) | CPT/HCPCS: 77063; 77067 ==

== ENCOUNTER → 2024-07-12 12:56 | Outpatient (REF) | payer BC, SELFPAY | LOC: HO.CARD 12:56 | PROVIDERS: Visit Provider Internal Medicine | DX: I49.8 Other specified cardiac arrhythmias (principal) | CPT/HCPCS: 93242 ==

== ENCOUNTER → 2024-07-20 12:08 | Outpatient (REF) | payer BC, SELFPAY ==
--- NOTE | 2024-07-20 12:13 | HM_ITS ---
* Total monitoring time 3 days. * Underlying rhythm is sinus with an average rate of 79/Min. * Rare supraventricular ectopy. * Rare ventricular ectopy. One brief run of 4 beats. * No significant pauses or high-grade AV blocks. * No patient markers or diary events. MTDD
== END ==
LOC: HO.CARD 12:08
PROVIDERS: Visit Provider Internal Medicine
DX: I49.8 Other specified cardiac arrhythmias (principal)
CPT/HCPCS: 93242

== ENCOUNTER → 2024-07-20 12:13 | Outpatient (BNV) | payer BC, SELFPAY | PROVIDERS: Visit Provider Internal Medicine | DX: I47.10 Supraventricular tachycardia, unspecified (principal) | CPT/HCPCS: 93244 ==

== ENCOUNTER 2024-09-10 07:53 | Outpatient (REF) | payer BC, SELFPAY ==
--- NOTE | ~2024-09-10 | MM_ITS ---
EXAMINATION: MM SCREENING DIGITAL BREAST TOMOSYNTHESIS, BILATERAL CLINICAL INFORMATION: Screening. Asymptomatic. COMPARISON: Mammography: Comparison is made with available priors TECHNIQUE: Digital breast mammography with tomosynthesis is performed in both the craniocaudal and mediolateral oblique views along with computer-aided detection (CAD). FINDINGS: The breasts are heterogeneously dense, which may obscure small masses (ACR BI-RADS breast composition Category c). There are no significant masses, abnormal calcifications, or other abnormalities. MM/MM tomosynthesis screening BI IMPRESSION: No mammographic evidence of malignancy. ASSESSMENT: BI-RADS BI-RADS 1 - Negative RECOMMENDATION: Routine annual mammography screening. 1 year F/U This examination should not preclude the clinical evaluation of a suspicious palpable abnormality. This patient's information was entered into a reminder system with a target due date for their next mammogram. Electronically signed by: Maru Rivas DO 09/16/2024 08:11 AM [facility]
--- OUTSIDE RECORDS SUMMARY | 2024-09-15 05:07 | XMS_ITS | Data Portability ---
Author Organization [facility], [address] Address [address] [place] [address] Care Team Providers Care Lower In Supervisor Name Role Phone KATRIN FRY Primary Care Provider Assessment No assessment recorded. Plan of Treatment Reminders Order Date Submit Date Provider Last Modified By Organization Details Last Modified Time Details Appointments None recorded. Lab None recorded. Referral None recorded. Procedures None recorded. Surgeries None recorded. Imaging None recorded. Medication Orders Polytrim 10,000 unit-1 mg/mL eye drops 2022 023 [facility]armacy #[id number], [address] [place], [address], 3 15:14:53 olopatadine 0.1 % eye drops 2022 023 [facility]/Pharmacy #[id number], [address] [place], [address], 3 18:02:57 ketorolac 0.5 % eye drops 2022 023 [facility]/Pharmacy #[id number], [address] [place], [address], 3 18:02:58 Patient TargetsNo targets recorded. Patient Instructions Encounter Date Encounter Id Patient Instructions Last Modified By Organization Details Last Modified Time 10/06/2022 [id number] emma: care instructions [email or web address] Not available 10/06/2022 09:31:36 Susan, You were seen today for conjunctivitis of your left eye. It appears to be bacterial and I am prescribing you antibiotic eye drops. Please use warm compresses as discussed. Warm black tea bag is also helpful as it is a natural anti-microbial. If you experience any worsening symptoms, changes in vision, severe eye pain, rashes or other new symptoms please return to the urgent care or proceed to ED promptly. Thanks! ru Not available 10/06/2022 09:31:16 Reason for Referral None Reported. Problems No Known Problems Procedures Surgical History Date Name Laterality Status Provider Name and Address Organization Details Recorded Time section completed IRIS COUVERTI ER PA - [facility] 10/06/2022 09:06:30 Removal of gallbladder completed IRIS COUVERTIER PA - [facility] 10/06/2022 09:06:51 Imaging Results None recorded. Procedure Notes None recorded. Medical Equipment None Reported. Allergies No known drug allergies Medications Name Sig Start Date Stop Date Status Note LastModified by Organization Details LastModified Time pain relief lidocaine 4% patch 6s APPLY 1 PATCH ONTO THE SKIN DAILY NEEDED FOR PAIN 10/12 completed Not Available Not Available Not Available cyclobenzap rine 10 mg tablet TAKE 1 TABLET BY MOUTH AT BEDTIME NEEDED FOR MUSCLE SPASM 10/12 completed Not Available Not Available Not Available prednisone 10 mg tablet TAKE 3 TABLETS BY MOUTH EVERY DAY FOR 5 DAYS 10/12 completed Not Available Not Available Not Available cetirizine 10 mg tablet TAKE 1 TABLET BY MOUTH DAILY 10/12 completed Not Available Not Available Not Available ketorolac 0.5 % eye drops Instill 1 drop 4 times a day by ophthalmi c route as needed for 7 days. 2022 active Not Available Not Available Not Avai lable benzonatate 100 mg capsule TAKE 1 CAPSULE BY MOUTH THREE TIMES DAILY NEEDED FOR COUGH 10/12 completed Not Available Not Available Not Available olopatadine 0.1 % eye drops Instill 1 drop twice a day by ophthalmi c route for 7 days. 2022 active Not Available Not Available Not Avai lable polymyxin B sulfate 10,000 unit-trimet hoprim 1 mg/mL eye drops INSTILL 1 DROP INTO AFFECTED EYE(S) BY OPHTHALMI C ROUTE EVERY 6 HOURS FOR 7 DAYS active Not Available Not Available No t Available albuterol sulfate HFA 90 mcg/actuati on aerosol inhaler INHALE 2 PUFFS INTO THE LUNGS EVERY 6 HOURS NEEDED FOR SHORTNESS OF BREATH OR WHEEZING active Not Available Not Available No t Available BinaxNOW COVID-19 Ag Self Test kit TEST DIRECTED TODAY active Not Available Not Available No t Available Vitals Date Recorded Body height Body mass index (BMI) Body weight Body temperature Respiratory rate Heart rate Oxygen saturation Oxygen saturation in Arterial blood by Pulse oximetry Systolic blood pressure Diastolic blood pressure Provider Name and Address Organization Details Last Updated DateTime 3 162.56 cm 30.9 kg/m2 88081.6 3 g 97.8 [degF] 18 /min 70 /min 98 % 98 % 122 mm[Hg] 80 mm[Hg] JEANETH Dobbs PA - [facility] 3 09:08:11 Date Recorded Body height Body mass index (BMI) Body weight Body temperature Oxygen saturation Oxygen saturation in Arterial blood by Pulse oximetry Heart rate Respiratory rate Systolic blood pressure Diastolic blood pressure Provider Name and Address Organization Details Last Updated DateTime 3 162.56 cm 30.9 kg/m2 66043.6 3 g 97 [degF] 97 % 97 % 70 /min 16 /min 118 mm[Hg] 80 mm[Hg] ABBIE MEDINA PA - [facility] 3 17:48:29 Social History Question Answer Notes LastModified by Organizat ion Details LastModified Time Tobacco Smoking Status Never Smoker JEANETH rojas PA - [facility] 10/06/2022 09:06:11 What Is Your Level Of Alcohol Consumption? Occasional Information not available 10/06/2022 What Is Your Water Source? City Information not available 10/06/2022 What Is Your Heat Source? Other Information not available 10/06/2022 Have You Had Direct Contact, Or Contact During Intimacy, With Monkeypox Rash, Scabs, Or Body Fluids From A Person With Monkeypox? No Information not available 10/06/2022 Do You Use Any Illicit Or Recreational Drugs? No Information not available 10/06/2022 Have You Recently Traveled Abroad? No Information not available 10/06/2022 Do You Or Have You Ever Used Any Other Forms Of Tobacco Or Nicotine? No Information not available 10/06/2022 Sex: Unknown Functional Status None recorded. Mental Status None recorded. Family History Relationship Description Onset Age of this Age Resolved Age Notes LastModified by Organization Details LastModified Time Father No current problems or disability Not available 09:05:57 Mother No current problems or disability Not available 09:05:57 Medical History No medical history recorded. Gynecological HistoryNo gynecological history recorded. Obstetrics History GPAL:G 0 P 0 0 0 0 Past Encounters Encounter ID Performer Location Encounter Start Date Encounter Closed Date Diagnosis/Indication Diagnosis SNOMED-CT Code Diagnosis ICD10 Code [id number] [address] [facility] [place] [id number] 10/07/2016 12:48:54 10/07/2016 14:43:02 [id number] [address] [place] [address] [id number] 03/03/2022 08:59:02 03/03/2022 10:09:23 [id number] [address] [facility] [place] [id number] 06/18/2020 12:54:52 06/18/2020 13:42:56 [id number] [address] [facility] [place] [id number] 06/05/2021 10:47:08 06/05/2021 12:35:15 [id number] [address] [facility] [place] [id number] 01/22/2017 19:35:46 01/22/2017 20:07:16 [id number] [address] [facility] [place] [id number] 06/11/2021 10:59:41 06/11/2021 12:52:37 [id number] [address] [facility] [place] [id number] 03/03/2017 10:53:37 03/03/2017 11:44:26 [id number] [address] [place] [id number] 04/12/2020 11:20:40 04/12/2020 13:37:01 [id number] [facility] [address] [facility] [place] [id number] 10/06/2022 08:45:40 10/06/2022 09:33:39 Acute conjunctivitis of left eye 7124991798 34414 H10.32 [id number] [facility] [place] [address] [place] [id number] 10/12/2022 17:32:47 10/12/2022 18:05:07 Acute conjunctivitis of bilateral eyes [id number] 11968 H10.33 Chemosis o f conjunctiva 1576568 H11.429 Health Concerns Section Related Observation LastModified by Organization Detai ls LastModified Time None Recorded Concern Status LastModified by Organization Details LastModified Time None Recorded Advance Directives Directive None Recorded Payers Encounter Date Sequence Insurance Name Policy Number Policy Cabezas Covered Member ID Cabezas Member ID Guarantor Name 06/05/2021 1 [place] [facility] [id number] Shira B Arlene [id number] Shira B [place] 06/11/2021 1 [place] [facility] [id number] Shira B Arlene [id number] Shira B Arlene 03/03/2022 1 [place] [facility] [id number] Shira B Arlene [id number] Shira B Arlene 10/06/2022 1 [place] [facility] [id number] Shira B Arlene [id number] Shira B Arlene 10/12/2022 1 [place] [facility] [id number] Shira B [place] [id number] Shira B Arlene Notes Date Note Type Note Provider Name and Address Organization Details Recorded Time 10/06/2022 text/html Shira is a 51 yo F here for evaluation of left eye redness, drainage and swelling x 1 day. She notes irritation and discharge draining. No vision changes other than slightly blurry secondary to drainage. This clears when she wipes the drainage. Did not bring her glasses for distance today, therefore visual acuity is not totally accurate. She denies use of contact lenses. AAKASH Doss, [facility] [address], [place], [address], [place] - [facility] 10/06/2022 15:14:57 10/12/2022 text/html Shira is a 51 yo F here for evaluation of left pink eye onset 1 week. Was seen here on 10/06/22 here on and diagnosed with conjuntivitis and was given drops & used faithfully , but no help. Pt feels is getting worse. + chemosis of left conjunctiva. Spread to right eye about 3-4 days ago and she tried the drops in the right eye as well. Stopped the drops 2 days ago. No improvement. Itching, watery, swelling, red, pain, burning. Clear discharge, no blurry vision. No contact lens use. AAKASH Doss, [facility] [address], [place], [address], [place] - [facility] 10/12/2022 18:05:56 OBGyn Episode No OBEpisode recorded.
== END 2024-09-10 07:54 | disposition home or self-care (01) ==
LOC: HO.MAMMO 07:53
PROVIDERS: PCP Internal Medicine; Visit Provider Internal Medicine
DX: Z12.31 Encounter for screening mammogram for malignant neoplasm of breast (principal)
CPT/HCPCS: 77063; 77067

== ENCOUNTER → 2024-09-10 08:00 | Outpatient (BNV) | payer BC, SELFPAY | PROVIDERS: PCP Internal Medicine; Visit Provider Internal Medicine | DX: Z12.31 Encounter for screening mammogram for malignant neoplasm of breast (principal) | CPT/HCPCS: 77063; 77067 ==

== ENCOUNTER 2024-09-14 11:26 | Outpatient (AMB) | payer BC, SELFPAY ==
[2024-09-14 11:28] VITALS: BP 126/72; PULSE 67; O2SAT 100; BMI 27.9
--- NOTE | 2024-09-14 11:28 | A.OFFPC_ITS ---
Vital Signs 09/14/24 11:28 Height 5 ft 4 in Weight 162 lb 8 oz BMI 27.9 BP 126/72 Blood Pressure Location Rt brachial Position Sitting Pulse 67 Pulse Source Pulse Oximeter Pulse Oximetry (%) 100 Oxygen Delivery Method Room Air Intake Visit Reasons: Annual PE Allergies No Known Allergies Allergy (Mild, Verified 09/14/24 11:28) N/A Tobacco use date assessed: 09/14/24 Dental Screening Dental Screen Date: 09/14/24 Did you have a dental visit in the last 12 months?: Yes Did you have a dental problem in the last 6 months where you did not have access to dental care?: No Was dental information given to patient?: Patient has dentist HPI Annual PE HPI Details Chief Complaint physical exam Assessment and Plan 53-year-old female annual physical exami [facility], [place]. The patient reports no new symptoms, and overall health is stable. Menopausal symptoms, including hot flashes, have diminished over the past year. Screening procedures, such as mammogram and colonoscopy, are up to date. There are no signs of systemic issues, and the patient appears to maintain overall good health. 1. Menopause The patient is in menopause and reports a reduction in hot flash symptoms. No pharmacological intervention is currently needed as symptoms are manageable. Recommended lifestyle measures continue to support symptom control. Diagnostic results - Mammogram completed in the previous we ek. - Colonoscopy performed in May 2023, next due in May 2027 Problem List - Lymphedema - Menopause Health Maintenance: OBGYN visit up-to-date [facility] Patient saw Dr. Forman at [facility] for gastroenterology consultation previously. OBGYN Patient Instructions - Schedule and complete fasting blood te sts as ordered. - Maintain regular exercise and use comp ression stockings as needed for lymphedema. - Consider scheduling a dermatology appo intment for routine skin evaluation. - No urgent follow-up is needed unless n ew symptoms arise. - Continue with current lifestyle measur es to manage menopausal symptoms. PFSH Medical History Diverticulosis COVID-19 Cough Surgical History History of surgery on left wrist Hx of colonoscopy Hx of cholecystectomy History of section Family History Father No problems noted. Mother No problems noted. 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 1. Little interest or pleasure in doing things: not at all 2. Feeling down, depressed, or hopeless: not at all 3. Trouble falling or staying asleep, or sleeping too much: not at all 4. Feeling tired or having little energy: not at all 5. Poor appetite or overeating: not at all 6. Feeling bad about yourself - or that you are a failure or have let yourself or your family down: not at all 7. Trouble concentrating on things, such as reading the newspaper or watching television: not at all 8. Moving or speaking so slowly that other people could have noticed. Or the opposite - being so fidgety or restless that you have been moving around a lot more than usual: not at all 9. Thoughts that you would be better off or of hurting yourself in some way: not at all Total score: 0 Depression Screening Interpretation: Negative Depression Screening Done: Yes 80951 - PHQ-9 Billing: Yes Source: Developed by Drs. Farshad Orozco, Ramila Martinez, Gigi Wiggins and colleagues, with an educational luz marina from [employer]. Thrive Questionnaire Date Thrive assessed: 09/14/24 I am a: Patient What is your living situation today?: I have a steady place to live Within the past 12 months, did the food you bought not last and you didn't have the money to get more?: Never true Within the past 12 months, did you worry whether your food would run out before you got money to buy more?: Never true Do you have trouble paying for medicines?: No Do you have trouble getting transportation to medical appointments?: No Do you have trouble paying your heating and electricity bill?: No Do you have trouble taking care of your child, family member or friend?: No Do you have trouble with day-to-day activities such as bathing, preparing meals, shopping, managing finances, etc.?: No Are you currently unemployed and looking for a job?: No Are you interested in more education?: No Please select the resources that you would like help with: None Currently or been in a relationship where the following occur: No concerns reported THRIVE Score: 0 AUDIT C Alcohol Use Questionnaire (AUDIT-C) 1. How often do you have a drink containing alcohol?: 2-4 times a month 2. How many drinks containing alcohol do you have on a typical day when you are drinking?: 1 or 2 3. How often do you have six or more drinks on one occasion?: Never Total Score: 2 Score Reviewed/Action Taken: Yes CHARLIE-7 AMB Questionnaire CHARLIE-7 Date CHARLIE - 7 assessed: 09/14/24 Feeling nervous, anxious, or on edge: 0 = Not at all Not being able to stop or control worryin = Not at all Worrying too much about different things: 0 = Not at all Trouble relaxin = Not at all Being so restless that it is hard to sit still: 0 = Not at all Becoming easily annoyed or irritable: 0 = Not at all Feeling afraid as if something awful might happen: 0 = Not at all Total CHARLIE-7 score (0-4 normal; 5-9 mild; 10-14 moderate; 15-21 severe): 0 Source: Developed by Drs. Farshad Orozco, Ramila Martinez, Gigi Wiggins and colleagues, with an educational luz marina from [employer]. CHARLIE-7 Assessment Billing CHARLIE-7 Assessment Tool: CHARLIE-7 Assessment 76826 Review of Systems Const Denies chills, Denies fever(s) and Denies headache(s) Eyes Denies blurry vision ENT Denies headache(s), Denies nasal discharge, Denies nasal obstruction, Denies odynophagia and Denies sinus pain Card Denies chest pain at rest and Denies chest pain with activity Resp Denies cough and Denies hemoptysis GI Denies diarrhea, Denies odynophagia, Denies vomiting and Denies hematemesis Reports as per HPI Musc Denies abnormal gait Skin/Breast Reports as per HPI Neuro Denies Neuro-related abnormal movements, Denies Abnormal speech present, Denies abnormal gait, Denies headache(s) and Denies Sensory deficit (Neuro) Psych Denies mood swings and Denies paranoia Endo Reports as per HPI Storm/Lymph Reports as per HPI Aller/Immun Reports as per HPI Physical exam (Primary Care) Vital Signs: Last Vital Signs Pulse 67 09/14/24 11:28 BP 126/72 09/14/24 11:28 Pulse Ox 100 09/14/24 11:28 Oxygen Delivery Method Room Air 09/14/24 11:28 BMI result Body Mass Index 27.9 Tobacco/Smoking Status: Tobacco use Status Tobacco use date assessed 09/14/24 09/14/24 11:29 Patient Tobacco Use Status Never used Tobacco 09/14/24 11:29 e-Cigarette/Vaping Use Never Used 09/14/24 11:29 PHQ-9: PHQ-9 Score PHQ-9: Total score 0 09/14/24 11:29 Depression Screening Interpretation: Negative Thrive Assessment: Date of Thrive Assessment Date Thrive assessed 09/14/24 09/14/24 11:29 Currently or been in a relationship where the following occur: No concerns reported Const General: cooperative, comfortable and no acute distress Orientation/consciousness: patient oriented x3 HENMT Head: Yes normocephalic and Yes atraumatic Eyes General: appearance normal, both eyes and all related structures Pupils: Equal, round and reactive pupils present EOM: EOMs intact bilaterally Neck Neck: Yes supple and No lymphadenopathy Thyroid: Thyroid normal Lymphatic: no lymphadenopathy noted Resp Effort & Inspection: normal respiratory effort and able to speak in complete sentences Auscultation: clear to auscultation bilaterally Cardio Heart sounds: S1 normal heart sound present and S2 normal heart sound present GI Palpation (GI): Soft to palpation and nontender Auscultation: normal bowel sounds General: Yes no CVA tenderness Back/Spine/Pelvis Back: no CVA tenderness Skin General skin exam: elasticity normal and turgor normal Neuro General: patient oriented x3 and gait normal Cranial nerves: Yes Equal, round and reactive pupils present Speech: No Abnormal speech present Sensory Exam: No Sensory deficit (Neuro) Coordination: tandem gait normal and Romberg test negative Extrem General: Yes normal exam except as noted and No edema Coding Level of Care Code Est Pt Prev Care 40-64y(41369) Diagnoses Encounter for general adult medical examination without abnormal findings Z00.00 Skin cancer screening Z. Additional Codes CHARLIE-7 Assessment Billing - CHARLIE-7 Assessment Tool: CHARLIE-7 Assessment 93541 ([id number]) PHQ-9 - 22434 - PHQ-9 Billing: Yes ([id number]) Assessment & Plan Assessment & Plan (1) Encounter for general adult medical examination without abnormal findings: Code(s): Z00.00 - Encounter for general adult medical examination without abnormal findings Category: Medical (2) Skin cancer screening: Code(s): Z12. - Encounter for screening for malignant neoplasm of skin Category: Medical Plan Chief Complaint physical exam Assessment and Plan 53-year-old female annual physical examination. The patient reports no new symptoms, and overall health is stable. Menopausal symptoms, including hot flashes, have diminished over the past year. Screening procedures, such as mammogram and colonoscopy, are up to date. There are no signs of systemic issues, and the patient appears to maintain overall good health. 1. Menopause The patient is in menopause and reports a reduction in hot flash symptoms. No pharmacological intervention is currently needed as symptoms are manageable. Recommended lifestyle measures continue to support symptom control. Diagnostic results - Mammogram completed in the previous week. - Colonoscopy performed in May 2023, next due in May 2027 Problem List - Lymphedema - Menopause Health Maintenance: OBGYN visit up-to-date [facility] Patient saw Dr. Forman at [facility] for gastroenterology consultation previously. OBGYN Patient Instructions - Schedule and complete fasting blood tests as ordered. - Maintain regular exercise and use compression stockings as needed for lymphedema. - Consider scheduling a dermatology appointment for routine skin evaluation. - No urgent follow-up is needed unless new symptoms arise. - Continue with current lifestyle measures to manage menopausal symptoms. Orders: Orders Complete Blood Count Auto Diff Today Z00.00 - Encounter for general adult medical examination without abnormal findings Comprehensive [place]. Panel Fast Today Z00.00 - Encounter for general adult medical examination without abnormal findings Lipid Panel Today Z00.00 - Encounter for general adult medical examination without abnormal findings Vitamin D 25-OH (D2 and D3) Today Z00.00 - Encounter for general adult medical examination without abnormal findings Referrals Dermatology Referral Z. - Encounter for screening for malignant neoplasm of skin
== END 2024-09-14 11:52 | disposition home or self-care (01) ==
PROVIDERS: PCP Internal Medicine; Visit Provider Internal Medicine
DX: Z00.00 Encounter for general adult medical examination without abnormal findings (principal); Z12.83 Encounter for screening for malignant neoplasm of skin

== ENCOUNTER → 2024-09-14 11:26 | Outpatient (BNVA) | payer BC, SELFPAY | PROVIDERS: PCP Internal Medicine; Visit Provider Internal Medicine | DX: Z00.00 Encounter for general adult medical examination without abnormal findings (principal); I89.0 Lymphedema, not elsewhere classified; Z78.0 Asymptomatic menopausal state | CPT/HCPCS: 96127 ==

== ENCOUNTER 2024-10-04 07:08 | Outpatient (REF) | payer BC, SELFPAY ==
[2024-10-04 09:59] LABS: MANUAL DIFF FLAG NO
[2024-10-04 10:04] LABS: Basophils Percent Auto 0.4 % (0-2); Eosinophils Absolute Auto 0.2 X10*3/uL (0.0-0.4); Eosinophils Percent Auto 3.1 % (0-4); Hematocrit 39.5 % (37.0-47.0); Hemoglobin 13.1 g/dl (12.0-16.0); Imm Gran Abs Auto 0.02 X10*3/uL (0.00-0.03); Imm Gran Pct Auto 0.4 % (0.0-0.4); Lymphocytes Absolute Auto 1.2 X10*3/uL (1.2-4.9); Lymphocytes Percent Auto 22.4 % (20-40); Mean Corpuscular HGB Conc 33.2 g/dl (31.0-35.0); Mean Corpuscular Hemoglobin 31.6 pg (27.0-33.0); Mean Corpuscular Volume 95.4 fL (80.0-98.0); Mean Platelet Volume 10.4 fL (9.4-12.3); Monocytes Absolute Auto 0.5 X10*3/uL (0.1-1.2); Monocytes Percent Auto 9.1 % (2-11); Neutrophils Absolute Auto 3.6 x10*3/uL (2.0-8.3); Neutrophils Percent Auto 64.6 % (45-73); Platelet Count 274 X10*3/uL (160-400); Red Blood Count 4.14 X10*6/uL (4.20-5.50); Red Cell Distribution Width 12.4 % (11.0-16.0); White Blood Count 5.5 X10*3/uL (4.8-10.8)
[2024-10-04 10:28] LABS: Alanine Aminotransferase 26 U/L (0-31); Albumin Level 4.1 g/dL (3.5-5.0); Alkaline Phosphatase 68 U/L (39-117); Anion Gap 10 (12-20); Aspartate Amino Transferase 21 U/L (5-31); Bilirubin Total 0.5 mg/dL (0.0-1.0); Blood Urea Nitrogen 16 mg/dL (9-16); Carbon Dioxide 24 mmol/L (22-29); Chloride 108 mmol/L (96-108); Cholesterol 171 mg/dL (<200); Estimated Glomerular Filt Rate > 60; Glucose Fasting 90 mg/dL (60-99); HDL Cholesterol 78 mg/dL (>40); LDL Cholesterol Calculated 83 mg/dL (<100); Sodium 138 mmol/L (135-145); Triglycerides 53 mg/dL (<150)
[2024-10-08 14:04] LABS: Vitamin D 25-OH, D2 <4 ng/mL; Vitamin D 25-OH, D3 52 ng/mL; Vitamin D 25-OH, Total 52 ng/mL (30-100)
== END 2024-10-04 07:09 | disposition home or self-care (01) ==
LOC: HO.HMGCLDS 07:08
PROVIDERS: PCP Internal Medicine; Visit Provider Internal Medicine
DX: Z00.00 Encounter for general adult medical examination without abnormal findings (principal)
CPT/HCPCS: 36415; 80053; 80061; 82306; 85025

== ENCOUNTER 2024-10-11 13:16 | Outpatient (AMB) | payer BC, SELFPAY ==
[2024-10-11 13:24] VITALS: BP 118/78; PULSE 70; BMI 32.2
--- NOTE | 2024-10-11 13:24 | MHC.OFFVIS ---
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 In the past, she was seen regarding palpitations. Workup had shown supraventricular ectopy. It seems that it has spontaneously resolved and over the last year or so, she has been feeling fine. No further palpitations or in fact any cardiac symptoms whatsoever. She feels good. [facility] Medical History Diverticulosis COVID-19 Cough Surgical History History of surgery on left wrist Hx of colonoscopy Hx of cholecystectomy History of section Family History Father No problems noted. Mother No problems noted. 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 Cognitive needs: No Hearing needs: No Vision needs: Yes Review of Systems Const Denies chills, Denies fatigue, Denies fever(s), Denies weight gain and Denies weight loss ENT Denies dizziness Card Denies chest pain, Denies leg edema, Denies lightheadedness, Reports palpitations, Denies dyspnea on exertion, Denies orthopnea and Denies other Resp Denies cough and Denies dyspnea on exertion GI Denies hematochezia and Denies change in stool character Musc Denies abnormal gait, Denies muscle weakness, Denies numbness, Denies radiating pain into limb and Denies tingling Neuro Denies abnormal gait, Denies dizziness, Denies numbness and Denies tingling Endo Denies fatigue and Reports palpitations Physical Exam Vital Signs: Last Vital Signs Pulse 70 10/11/24 13:24 BP 118/78 10/11/24 13:24 BMI result Body Mass Index 32.2 Const General: comfortable and no acute distress Orientation/consciousness: patient oriented x3 HEENT Other: Unremarkable Head: Yes normal to inspection Neck Neck: Yes normal visual inspection Chest Chest palpation & inspection: normal inspection of the chest Resp Auscultation: clear to auscultation bilaterally Cardio Palpation: normal PMI Heart sounds: S1 normal heart sound present, S2 normal heart sound present, no gallops, no murmurs and no rubs GI Palpation (GI): Soft to palpation Back/Spine/Pelvis Other: unremarkable Skin General skin exam: no rashes or lesions noted Neuro General: patient oriented x3 Extrem General: Yes normal to inspection Psych Mental Status: mental status grossly normal Office Procedures EKG Details: EKG with underlying sinus rhythm at 70/Min; sinus arrhythmias; no significant ST-T changes and otherwise unremarkable[place] [address]-Iogapaemrwozvemac, Complete Assessment & Plan Assessment & Plan (1) Atrial arrhythmia: Code(s): I49.8 - Other specified cardiac arrhythmias Category: Medical Plan Cardiac studies reviewed. In the most recent Holter, underlying rhythm is sinus with rare ectopy. Previously, Holter had shown frequent supraventricular ectopy with a burden of as much as 12%. Echocardiogram is unremarkable. Overall, palpitations in the past suspected to be from supraventricular ectopy but seems to have resolved. She is clinically asymptomatic. Minimal arrhythmia burden. Mainly reassurance. If any recurrence or other concerns, she will contact us. Coding Level of Care Code Est Pt Level 3 (79787) Diagnoses Atrial arrhythmia I49.8 CPT Codes EKG - CPT: 72039-Uxwfioqiwcrrebqpj, Complete ([id number])
--- OUTSIDE RECORDS SUMMARY | 2024-10-11 15:29 | XMS_ITS | Data Portability ---
Author Organization [facility], [address] Address [address] [place] [address] Care Team Providers Care Nurse Head Name Role Phone KATRIN FRY Primary Care Provider [phone] Assessment No assessment recorded. Plan of Treatment Reminders Order Date Submit Date Provider Last Modified By Organization Details Last Modified Time Details Appointments None recorded. Lab None recorded. Referral None recorded. Procedures None recorded. Surgeries None recorded. Imaging None recorded. Medication Orders Polytrim 10,000 unit-1 mg/mL eye drops 2022 023 [id number], [address] [place], [address], 3 15:14:53 olopatadine 0.1 % eye drops 2022 023 [id number], [address] [place], [address], 3 18:02:57 ketorolac 0.5 % eye drops 2022 023 [id number], [address] [place], [address], 3 18:02:58 Patient TargetsNo targets recorded. Patient Instructions Encounter Date Encounter Id Patient Instructions Last Modified By Organization Details Last Modified Time 10/06/2022 [id number] emma: care instructions [email or web address] Not available 10/06/2022 [...] Organization Details Recorded Time section completed IRIS COUVERTIER PA - [facility] 10/06/2022 09:06:30 Cholecystectomy completed IRIS COUVERTIER PA - [facility] [...] Updated DateTime 3 162.56 cm 30.9 kg/m2 56982.6 3 g 97.8 [degF] 18 /min 70 [...] Updated DateTime 3 162.56 cm 30.9 kg/m2 56231.6 3 g 97 [degF] 97 % 97 % 70 /min 16 /min 118 mm[Hg] 80 mm[Hg] ABBIE WAGNERJERZY PA - [facility] 3 17:48:29 Social [...] Diagnosis/Indication Diagnosis SNOMED-CT Code Diagnosis ICD10 Code Diagnosis Note [id number] [address] [facility] [place] [address] 10/07/2016 12:48:54 10/07/2016 14:43:02 [id number] [address] [facility] [place] [address] 03/03/2022 08:59:02 03/03/2022 10:09:23 [id number] [address] [facility] [place] [address] 06/18/2020 12:54:52 06/18/2020 13:42:56 [id number] [address] [facility] [place] [address] 06/05/2021 10:47:08 06/05/2021 12:35:15 [id number] [address] [facility] [place] [address] 01/22/2017 19:35:46 01/22/2017 20:07:16 [id number] [address] [facility] [place] [address] 06/11/2021 10:59:41 06/11/2021 12:52:37 [id number] [address] [facility] [place] [address] 03/03/2017 10:53:37 03/03/2017 11:44:26 [id number] [address] [place] [address] 04/12/2020 11:20:40 04/12/2020 13:37:01 [id number] YING [facility] [address] [facility] [place] [address] 10/06/2022 08:45:40 10/06/2022 09:33:39 Acute conjunctivitis of left eye [id number] 47152 H10.32 [id number] YING [place] [address] [place] [address] 10/12/2022 17:32:47 10/12/2022 18:05:07 Acute conjunctivitis of bilateral eyes [id number] 83059 H10.33 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 Health Concerns Section Related Observation LastModified by Organization Detai ls LastModified Time None Recorded Concern Status LastModified by Organization Details LastModified Time None Recorded Advance Directives Directive None Recorded Payers Encounter Date Sequence Insurance Name Policy Number Policy Cabezas Covered Member ID Cabezas Member ID Guarantor Name 06/05/2021 1 [place] [facility] [place] [id number] Shira B Arlene [id number] Shira B Arlene 06/11/2021 1 [place] [facility] [place] [id number] Shira B [place] [id number] Shira B Arlene 03/03/2022 1 [place] [facility] [place] [id number] Shira B Arlene [id number] Shira B [place] 10/06/2022 1 [place] [facility] [place] [id number] Shira B [place] [id number] Shira B Arlene 10/12/2022 1 [place] [facility] [place] [id number] Shira B Arlene [id number] Shira B Arlene Notes Date Note [...] Doss, YING [address], [place], [address], YING - [facility] 10/06/2022 15:14:57 10/12/2022 text/html [...] Doss, YING [address], [place], [address], [place] - [facility] 10/12/2022 18:05:56 OBGyn Episode No OBEpisode recorded.
== END 2024-10-11 13:41 | disposition home or self-care (01) ==
PROVIDERS: PCP Internal Medicine; Visit Provider Internal Medicine
DX: I49.8 Other specified cardiac arrhythmias (principal)
CPT/HCPCS: 93010; 99213

== ENCOUNTER → 2024-10-11 13:16 | Outpatient (BNVA) | payer BC, SELFPAY | PROVIDERS: PCP Internal Medicine; Visit Provider Internal Medicine | DX: I49.8 Other specified cardiac arrhythmias (principal) | CPT/HCPCS: 93005 ==

== ENCOUNTER 2025-09-16 12:23 | Outpatient (AMB) | payer BC, SELFPAY ==
--- NOTE | 2025-09-16 12:25 | A.OFFPC_ITS ---
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 Accompanied by: Self / Same As Patient Allergies No Known Allergies Allergy (Mild, Verified 09/16/25 12:26) N/A Medication List - Last Reconciled 09/16/25 by Stef Schroeder MD albuterol sulfate 90 mcg/actuation (ProAir HFA) 2 puffs inhalation Q6H PRN Tobacco use date assessed: 09/16/25 Dental Screening Dental Screen Date: 09/16/25 Did you have a dental visit in the last 12 months?: Yes Did you have a dental problem in the last 6 months where you did not have access to dental care?: No Was dental information given to patient?: Patient has dentist HPI HPI Comments History of Present Illness Details History of Present Illness The patient is a 54 year old female presenting for an annual physical exam. Obesity: - The patient has a history of weight ga in and an elevated BMI of 33.3. - She reports a lifelong struggle with h er weight. - A couple of years ago, she lost a sign ificant amount of weight on a very restrictive diet but notes that she also lost muscle and the diet was not sustainable. - She currently exercises 4-5 times a we ek, including lifting weights, and reports feeling healthy and strong with good energy levels. - She recently started a program?_t o [employer] for accountability, which involves tracking food with a group of friends. Menopausal symptoms: - The patient started hormone replacemen t therapy (HRT) about one month ago for menopausal symptoms. - She is using an estrogen patch and fee ls it helps her symptoms 'a little'. - Her menopause has made her weight stru ggle more difficult. Chronic Constipation: - The patient reports a lifelong history of constipation, which she has experienced since childhood. - Her symptoms improved after having chi ldren. - She currently has bowel movements appr oximately every other day and occasionally has to strain, though not as much as she used to. Medical History: - Obesity, with a BMI of 33.3 - Chronic constipation since childhood - Menopause - History of palpitations which have sub sided - Mild refractive error requiring glasse s Health Maintenance - She is up-to-date with her [employer] gene muller. - [facility]. - Her last colonoscopy was in 2022, with the next one due in May of 2027. - She has seen a stna recently, and her skin exam was normal. - She has had her eyes checked and wears glasses. - She declined the influenza vaccine. [place] of Care - SKATING [employer] ICE MAKER: Dr. Raúl Tomlinson. - French Binder: Seen a few months ago, provider not named. Medications - Estrogen patch: Started about one hakan h ago for menopausal symptoms. PFSH Medical History Diverticulosis COVID-19 Cough Surgical History History of surgery on left wrist Hx of colonoscopy Hx of cholecystectomy History of section Family History Father No problems noted. Mother No problems noted. 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 1. Little interest or pleasure in doing things: not at all 2. Feeling down, depressed, or hopeless: not at all 3. Trouble falling or staying asleep, or sleeping too much: not at all 4. Feeling tired or having little energy: not at all 5. Poor appetite or overeating: not at all 6. Feeling bad about yourself - or that you are a failure or have let yourself or your family down: not at all 7. Trouble concentrating on things, such as reading the newspaper or watching television: not at all 8. Moving or speaking so slowly that other people could have noticed. Or the opposite - being so fidgety or restless that you have been moving around a lot more than usual: not at all 9. Thoughts that you would be better off or of hurting yourself in some way: not at all Total score: 0 Depression Screening Interpretation: Negative Depression Screening Done: Yes 16280 - PHQ-9 Billing: Yes Source: Developed by Drs. Farshad Orozco, Ramila Martinez, Gigi Wiggins and colleagues, with an educational luz marina from [employer]. Thrive Questionnaire Date Thrive assessed: 09/16/25 I am a: Patient What is your living situation today?: I have a steady place to live Within the past 12 months, did the food you bought not last and you didn't have the money to get more?: Never true Within the past 12 months, did you worry whether your food would run out before you got money to buy more?: Never true Do you have trouble paying for medicines?: No Do you have trouble getting transportation to medical appointments?: No Do you have trouble paying your heating and electricity bill?: No Do you have trouble taking care of your child, family member or friend?: No Do you have trouble with day-to-day activities such as bathing, preparing meals, shopping, managing finances, etc.?: No Are you currently unemployed and looking for a job?: No Are you interested in more education?: No Please select the resources that you would like help with: None Currently or been in a relationship where the following occur: No concerns reported THRIVE Score: 0 AUDIT C Alcohol Use Questionnaire (AUDIT-C) 1. How often do you have a drink containing alcohol?: 2-4 times a month 2. How many drinks containing alcohol do you have on a typical day when you are drinking?: 1 or 2 3. How often do you have six or more drinks on one occasion?: Never Total Score: 2 Score Reviewed/Action Taken: Yes CHARLIE-7 AMB Questionnaire CHARLIE-7 Date CHARLIE - 7 assessed: 09/16/25 Feeling nervous, anxious, or on edge: 0 = Not at all Not being able to stop or control worryin = Not at all Worrying too much about different things: 0 = Not at all Trouble relaxin = Not at all Being so restless that it is hard to sit still: 0 = Not at all Becoming easily annoyed or irritable: 0 = Not at all Feeling afraid as if something awful might happen: 0 = Not at all Total CHARLIE-7 score (0-4 normal; 5-9 mild; 10-14 moderate; 15-21 severe): 0 Source: Developed by Drs. Farshad Orozco, Ramila Martinez, Gigi Wiggins and colleagues, with an educational luz marina from [employer]. CHARLIE-7 Assessment Billing CHARLIE-7 Assessment Tool: CHARLIE-7 Assessment 61069 Review of Systems Narrative Review of Systems - General: No fever no chills - Neurological: No headaches no dizziness - Ear nose throat: No sore throat no hearing difficulty no ear pain - Cardiovascular: No syncope, no chest pain, no palpitations - Gastrointestinal: No nausea vomiting or diarrhea - Endocrine: No polyuria polydipsia no heat intolerance - Genitourinary: No dysuria - Skin: No new complaints Physical exam (Primary Care) Vital Signs: Last Vital Signs Pulse 77 09/16/25 12:26 Resp 16 09/16/25 12:26 BP 118/82 09/16/25 12:26 Pulse Ox 98 09/16/25 12:26 Oxygen Delivery Method Room Air 09/16/25 12:26 BMI result Body Mass Index 33.3 Tobacco/Smoking Status: Tobacco use Status Tobacco use date assessed 09/16/25 09/16/25 12:27 Patient Tobacco Use Status Never used Tobacco 09/16/25 12:27 e-Cigarette/Vaping Use Never Used 09/16/25 12:27 PHQ-9: PHQ-9 Score PHQ-9: Total score 0 09/16/25 12:42 Depression Screening Interpretation: Negative Thrive Assessment: Date of Thrive Assessment Date Thrive assessed 09/16/25 09/16/25 12:27 Currently or been in a relationship where the following occur: No concerns reported Narrative Diagnostic results - BMI: 33.3 Physical Exam General: Cooperative, healthy appearing, comfortable, no acute distress Orientation: Patient oriented x3 Head: Normal to inspection Ears: Within normal limit visually, no problems reported Nose: Normal external nose present Face and sinus: Normal facial exam Eyes: Appearance normal, extraocular movement intact pupils reactive Neck: Normal visual inspection and supple, thyroid is good Respiratory: Normal respiratory effort and able to speak in complete sentences. Clear to auscultation, no stridor Cardiovascular: S1 and S2 RRR, no palpitations reported Breast exam thru Obgyn GI: Normal to inspection. Soft to palpation and nontender Skin: Turgor normal, no acute findings, no rashes or moles needing attention Neuro: Patient oriented x3, motor sensory intact, balance intact, tandem pass Extremities: Normal to inspection, ROM intact . Coding Level of Care Code Est Pt Level 3 (09847) Est Pt Prev Care 40-64y(28301) Diagnoses Encounter for general adult medical examination without abnormal findings Z00.00 Class 1 obesity due to excess calories without serious comorbidity with body mass index (BMI) of 33.0 to 33.9 in adult E66.811; E66.09; Z68.33 Obesity classification: adult class 1 (BMI 30 - 34.9) Serious obesity comorbidity presence: without serious comorbidity Body mass index: BMI 33.0-33.9 Slow transit constipation K59.01 Constipation type: slow transit constipation Postmenopausal HRT (hormone replacement therapy) Z79.890 Additional Codes CHARLIE-7 Assessment Billing - CHARLIE-7 Assessment Tool: CHARLIE-7 Assessment 25323 ([id number]) PHQ-9 - 56745 - PHQ-9 Billing: Yes ([id number]) Assessment & Plan Assessment & Plan (1) Encounter for general adult medical examination without abnormal findings: Code(s): Z00.00 - Encounter for general adult medical examination without abnormal findings Category: Medical (2) Obesity due to excess calories: Code(s): E66.09 - Other obesity due to excess calories Category: Medical Qualifiers: Obesity classification: adult class 1 (BMI 30 - 34.9) Serious obesity comorbidity presence: without serious comorbidity Body mass index: BMI 33.0- 33.9 Qualified Code(s): E66.811 - Obesity, class 1; E66.09 - Other obesity due to excess calories; Z68.33 - Body mass index [BMI] 33.0-33.9, adult (3) Constipation: Code(s): K59.00 - Constipation, unspecified Category: Medical Qualifiers: Constipation type: slow transit constipation Qualified Code(s): K59.01 - Slow transit constipation (4) Postmenopausal HRT (hormone replacement therapy): Code(s): Z79.890 - Hormone replacement therapy Category: Medical Plan Patient Instructions - You will need to get a new set of blood tests done. - You must fast for at least 8 hours - Your test results will be available on your patient portal. - For constipation, you can try taking a laxative OTC, its important to move your bowls at least every other day and avoid pushing, add stool softner if needed - Schedule your next yearly physical exam before you leave today. Orders: Orders Comprehensive Cos Cob. Panel Fast Today E66.09 - Other obesity due to excess calories, N95.9 - Unspecified menopausal and perimenopausal disorder, Z00.00 - Encounter for general adult medical examination without abnormal findings Lipid Panel Today E66.09 - Other obesity due to excess calories, N95.9 - Unspecified menopausal and perimenopausal disorder, Z00.00 - Encounter for general adult medical examination without abnormal findings Vitamin D 25-OH (D2 and D3) Today E66.09 - Other obesity due to excess calories, N95.9 - Unspecified menopausal and perimenopausal disorder, Z00.00 - Encounter for general adult medical examination without abnormal findings TSH reflex Free T4 Today E66.09 - Other obesity due to excess calories, N95.9 - Unspecified menopausal and perimenopausal disorder, Z00.00 - Encounter for general adult medical examination without abnormal findings Complete Blood Count Auto Diff Today E66.09 - Other obesity due to excess calories, N95.9 - Unspecified menopausal and perimenopausal disorder, Z00.00 - Encounter for general adult medical examination without abnormal findings
[2025-09-16 12:26] VITALS: BP 118/82; PULSE 77; RESP 16; O2SAT 98; BMI 33.3
== END 2025-09-16 12:54 | disposition home or self-care (01) ==
LOC: HO.HMCC 12:24
PROVIDERS: PCP Internal Medicine; Visit Provider Internal Medicine
DX: Z00.00 Encounter for general adult medical examination without abnormal findings (principal); K59.01 Slow transit constipation; E66.811 Obesity, class 1; Z68.33 Body mass index [BMI] 33.0-33.9, adult; E66.09 Other obesity due to excess calories; Z79.890 Hormone replacement therapy

== ENCOUNTER → 2025-09-16 12:23 | Outpatient (BNVA) | payer BC, SELFPAY | PROVIDERS: PCP Internal Medicine; Visit Provider Internal Medicine | DX: Z00.00 Encounter for general adult medical examination without abnormal findings (principal); E66.811 Obesity, class 1; E66.09 Other obesity due to excess calories; K59.01 Slow transit constipation; Z79.890 Hormone replacement therapy; Z68.33 Body mass index [BMI] 33.0-33.9, adult | CPT/HCPCS: 96127 ==

== ENCOUNTER 2025-09-19 07:55 | Outpatient (REF) | payer BC, SELFPAY ==
--- NOTE | ~2025-09-19 | MM_ITS ---
EXAMINATION: MM SCREENING DIGITAL BREAST TOMOSYNTHESIS, BILATERAL CLINICAL INFORMATION: Screening. Asymptomatic. COMPARISON: Mammography: Comparison is made with available priors TECHNIQUE: Digital breast mammography with tomosynthesis is performed in both the craniocaudal and mediolateral oblique views along with computer-aided detection (CAD). FINDINGS: The breasts are heterogeneously dense, which may obscure small masses. There are no significant masses, abnormal calcifications, or other abnormalities. MM/MM tomosynthesis screening BI IMPRESSION: No mammographic evidence of malignancy. ASSESSMENT: BI-RADS Category 1: Negative RECOMMENDATION: Routine annual mammography screening. 1 year F/U This examination should not preclude the clinical evaluation of a suspicious palpable abnormality. This patient's information was entered into a reminder system with a target due date for their next mammogram. Electronically signed by: Maru Rivas DO 09/21/2025 10:57 AM YELENA
== END 2025-09-19 07:56 | disposition home or self-care (01) ==
LOC: HO.MAMMO 07:55
PROVIDERS: PCP Internal Medicine; Visit Provider Internal Medicine
DX: Z12.31 Encounter for screening mammogram for malignant neoplasm of breast (principal)
CPT/HCPCS: 77063; 77067

== ENCOUNTER → 2025-09-19 08:00 | Outpatient (BNV) | payer BC, SELFPAY | PROVIDERS: PCP Internal Medicine; Visit Provider Internal Medicine | DX: Z12.31 Encounter for screening mammogram for malignant neoplasm of breast (principal) | CPT/HCPCS: 77063; 77067 ==

== ENCOUNTER 2025-09-23 08:16 | Outpatient (REF) | payer BC, SELFPAY ==
--- OUTSIDE RECORDS SUMMARY | 2025-09-23 08:19 | XMS_ITS | Patient Health Record ---
Author Organization [facility] Address [address] [place] [address] Care Team Providers Care Foundation Maker Name Role Phone Alexandre STATON, Asma Primary Care Provider Marion Salazar Unavailable [phone] Reason For Referral No Information Social History Tobacco Use: Social History Observation Description Date Details (start date - stop date) Never Smoker NA - NA Tobacco Use/Smoking Question Answer Notes Are you a: nonsmoker Additional Findings: Tobacco Non-User Current no n-smoker Alcohol Screen Question Answer Notes Did you have a drink contain ing alcohol in the past year? Yes How often did you have a dri nk containing alcohol in the past year? Monthly or less (1 point) Points 1 Interpretation Negative Tobacco use other than smoking: Question Answer Notes Are you an other tobacco user? No Plan Of Treatment Pending Test Test Name Order Date X ray : Foot, left 3V 10/13/2018 Insurance Providers Payer Name Payer Address Payer Phone Subscriber Number Group Number Insured Name Patient Relationship to Insured Coverage Start Date Coverage End Date [facility] [address] [place] [address] [phone] [id number] Shira Jacobs Self - patient is the insured Medical (General) History Medical History History ICD Code Knee Pain Gall bladder problems Keloid/Thick Scar Chicken pox Surgical History Surgery Date(Month/Year) 1998, 2000, 2002, 2004 ?2008 gall bladder removed
[2025-09-23 10:09] LABS: MANUAL DIFF FLAG NO
[2025-09-23 10:24] LABS: Hematocrit 41.3 % (37.0-47.0); Hemoglobin 13.6 g/dl (12.0-16.0); Imm Gran Abs Auto 0.00 X10*3/uL (0.00-0.03); Imm Gran Pct Auto 0.0 % (0.0-0.4); Lymphocytes Absolute Auto 1.4 X10*3/uL (1.2-4.9); Mean Corpuscular HGB Conc 32.9 g/dl (31.0-35.0); Mean Corpuscular Hemoglobin 31.0 pg (27.0-33.0); Mean Corpuscular Volume 94.1 fL (80.0-98.0); NRBC Abs Auto 0.000 X10*3/uL (0.0-0.012); NRBC Pct Auto 0.0 /100WBC (0.0-0.2); Platelet Count 285 X10*3/uL (160-400); Red Blood Count 4.39 X10*6/uL (4.20-5.50); White Blood Count 4.8 X10*3/uL (4.8-10.8)
[2025-09-23 10:46] LABS: Alanine Aminotransferase 22 U/L (0-31); Albumin Level 4.5 g/dL (3.5-5.0); Alkaline Phosphatase 76 U/L (39-117); Anion Gap 11 (12-20); Aspartate Amino Transferase 19 U/L (5-31); Blood Urea Nitrogen 18 mg/dL (9-16); Calcium 9.5 mg/dL (8.4-10.2); Carbon Dioxide 26 mmol/L (22-29); Chloride 105 mmol/L (96-108); Cholesterol 174 mg/dL (<200); Estimated Glomerular Filt Rate > 60; HDL Cholesterol 77 mg/dL (>40); Potassium 4.2 mmol/L (3.3-5.1); Sodium 138 mmol/L (135-145); Total Protein 7.0 g/dL (6.5-8.0); Triglycerides 46 mg/dL (<150)
[2025-09-27 16:28] LABS: Vitamin D 25-OH, D2 <4 ng/mL; Vitamin D 25-OH, D3 50 ng/mL; Vitamin D 25-OH, Total 50 ng/mL (30-100)
== END 2025-09-23 08:17 | disposition home or self-care (01) ==
LOC: HO.HMGCLDS 08:16
PROVIDERS: PCP Internal Medicine; Visit Provider Internal Medicine
DX: Z00.00 Encounter for general adult medical examination without abnormal findings (principal); Z13.29 Encounter for screening for other suspected endocrine disorder; Z13.21 Encounter for screening for nutritional disorder; N95.9 Unspecified menopausal and perimenopausal disorder; E66.09 Other obesity due to excess calories
CPT/HCPCS: 36415; 80053; 80061; 82306; 84443; 85025